=== PATIENT | male | born 1950 | race African-American/Black ===

== ENCOUNTER 2017-12-13 12:55 | Observation (INO) ==
[2017-12-13 13:44] LABS: Basophils # 0.1 K/mcL (0.0-0.2); Eosinophils # 0.3 K/mcL (0.0-0.6); Hematocrit 42.9 % (37.5-50.1); Hemoglobin 15.5 g/dL (12.9-16.9); Immature Granulocytes % 0.4 % (0-4); Lymphocytes # 3.4 K/mcL (0.6-4.6); Lymphocytes % 41.3 %; Mean Corpuscular HGB Conc 36.1 g/dL (31.6-35.5); Mean Corpuscular Hemoglobin 28.5 pg (28.0-33.3); Mean Corpuscular Volume 78.9 fL (83.0-100.0); Mean Platelet Volume 10.3 fL (9.4-12.4); Monocytes # 0.6 K/mcL (0.0-1.3); Monocytes % 6.9 %; Neutrophils # 3.9 K/mcL (1.6-8.9); Platelet Count 197 K/mcL (140-400); Red Blood Count 5.44 M/mcL (4.19-5.50); Red Cell Distribution Width 13.4 % (11.5-14.5); Segmented Neutrophils % 47.4 %
[2017-12-13 13:56] LABS: Activated Partial Thrombo Time 32.5 Seconds (26.0-36.0)
[2017-12-13 14:06] LABS: Prothrombin Time 11.1 Seconds (9.4-12.1)
[2017-12-13 14:07] LABS: Troponin I < 0.03 ng/mL (< 0.04)
[2017-12-13 14:14] LABS: BUN/Creatinine Ratio 9 (6-26); Blood Urea Nitrogen 8 mg/dL (8-23); Calcium 9.3 mg/dL (8.6-10.3); Carbon Dioxide 27 mEq/L (23-29); Chloride 107 mEq/L (98-107); Glucose 131 mg/dL (70-105); Osmolality,Calculated 288 (280-300); Potassium 3.9 mEq/L (3.5-5.1); Sodium 139 mEq/L (136-145); eGFR For Non-African Americans > 60 (> 60)
[2017-12-13] MEDS ORDERED: Isovue-370 500 ML INFUS..BTL IV ONE (15:13)
[2017-12-13] MEDS ORDERED: Aspirin 325 MG TABLET PO ONE (15:13)
--- NOTE | 2017-12-13 15:17 | Emergency Department Note ---
Disposition Clinical Impression: Neurological deficit present Disposition: Admitted As Inpatient Condition: Good Referrals: Alfa Win MD [Primary Care Provider] - Forms: ED Satisfaction Letter Neuro HPI - General Chief Complaint: ED Neuro Symptoms/Deficit Stated Complaint: Neuro symptoms right side 45 minutes ago Time Seen by Provider: 12/13/17 13:29 Source: patient Limitations: no limitations Nursing Notes Reviewed: Yes Vital Signs Reviewed: Yes - History of Present Illness HPI Narrative: Patient presents today for evaluation of neuro symptoms. Patient has had intermittent symptoms in the left arm and face to go back approximately a couple of months. Symptoms happened and he did not think anything about it. Symptoms happened last night when he was telling his friends who is at bedside. Patient's symptoms resolved after several minutes. He also had symptoms this morning that resolved after short period of time. Patient's onset of symptoms was at 11:00 prior to arrival. Patient continues to have objective findings of sensation deficits to the face arm and leg on the right side. A stroke alert was called despite minimal finding secondary to the acute onset and wanting to ensure ability to stay at this facility. I did discuss the risk and benefits with the patient and he requested further specialty consultation. - Related Data Home Medications: Home Medications Medication Instructions Recorded Confirmed Fluticasone Propionate Nasal 2 puff NS DAILY PRN 12/13/17 12/13/17 [Flonase] HYDROcodone/Acet 7.5/325 mg [[place] 1 tab PO Q4H PRN 12/13/17 12/13/17 7.5-325 mg] Allergies/Adverse Reactions: Allergies Allergy/AdvReac Type Severity Reaction Status Date / Time latex Allergy Rash Verified 12/13/17 13:41 Sulfa (Sulfonamide Allergy Hives Verified 12/13/17 13:37 Antibiotics) Review of Systems: CONSTITUTIONAL: No weight loss, fever, chills, weakness or fatigue. HEENT: Eyes: No visual changes. Ears, Nose, Throat: No hearing loss, difficulty talking or unable to swallow. SKIN: No rash or itching. CARDIOVASCULAR: No chest pain, chest pressure or chest discomfort. No palpitations or edema. RESPIRATORY: No shortness of breath, cough or sputum. GASTROINTESTINAL: No anorexia, nausea, vomiting or diarrhea. No abdominal pain or blood. GENITOURINARY: No burning on urination or hematuria. NEUROLOGICAL: Right face arm and leg sensation deficit. Reported right facial deficit that resolved upon arrival. No headache, dizziness, syncope, paralysis , ataxia, numbness or tingling in the extremities. No change in bowel or bladder control. MUSCULOSKELETAL: No muscle pain, back pain, joint pain or stiffness. Past Medical History - Past Medical History Medical history: Reports: arthritis, diabetes, hyperlipidemia, hypertension, kidney stones, renal disease Psychiatric history: Reports: anxiety, depression - Social History Smoking Status: Current every day smoker Smokeless Tobacco Status: No Alcohol use: Reports: none Drug use: Reports: none Physical Exam General: Well appearing, nontoxic, no acute distress Head: Normocephalic Atraumatic Eyes: PERRL, EOMI ENT: Airway patent, no stridor Neck: supple, no meningismus Chest: Lungs clear to auscultation bilateral Cardiac: Regular rate and rhythm, no murmurs, rubs or gallops Abdomen: soft, nontender, nondistended; no guarding, rebound, or tenderness to percussion Musculoskeletal: Calves symmetric, nontender Skin: No rash, normal skin tone Neuro: Alert and Oriented to person, place, and time; sensation deficits to the right face arm and leg. Full 5 out of 5 muscle strength to the upper lower extremities. Finger to nose and heel to padilla intact. Patellar reflexes are equal and symmetric. Patient had reported right facial droop. Patient does have a mendoza and is mildly hard to assess but no specific facial droop noted on dilation. - General Limitations: no limitations General appearance: alert Course - Reevaluation(s) Reevaluation #1: Patient reevaluated states he feels mildly improved however on exam he continues to have the sensation deficits to the right side. CTA of the head and neck has been ordered. Patient will undergo further evaluation for possible stroke and be admitted to the hospitalist service. - Consultations Consultation #1: Discussed with [facility] stroke neurologist. Due to the unclear onset as well as stroke scale of one; patient will not receive TPA. Consultation #2: Discussed with hospitalist. Patient accepted for admission. Requests aspirin to be given. Vital Signs Temperature 97.9 F 12/13/17 12:59 Pulse Rate 83 12/13/17 12:59 Respiratory Rate 16 12/13/17 12:59 Blood Pressure 206/108 12/13/17 12:59 O2 Sat by Pulse Oximetry 97 12/13/17 12:59 Temperature 97.9 F 12/13/17 14:04 Pulse Rate 72 12/13/17 14:29 Respiratory Rate 20 12/13/17 14:29 Blood Pressure 161/91 12/13/17 14:29 O2 Sat by Pulse Oximetry 99 12/13/17 14:04 Oxygen Delivery Oxygen Delivery Room Air Neuro Symptoms/Deficit - Lab Data Result diagrams: 12/13/17 13:36 12/13/17 13:36 Lab Results 12/13/17 12/13/17 12/13/17 Range/Units 13:36 13:36 13:36 WBC 8.3 (4.3-11.1) K/mcL RBC 5.44 (4.19-5.50) M/mcL Hgb 15.5 (12.9-16.9) g/dL Hct 42.9 (37.5-50.1) % MCV 78.9 L (83.0-100.0) fL MCH 28.5 (28.0-33.3) pg MCHC 36.1 H (31.6-35.5) g/dL RDW 13.4 (11.5-14.5) % Plt Count 197 (140-400) K/mcL MPV 10.3 (9.4-12.4) fL Immature Gran % 0.4 (0-4) % Seg Neutrophils % 47.4 % Lymphocytes % 41.3 % Monocytes % 6.9 % Eosinophils % 3.0 % Basophils % 1.0 % Neutrophils # 3.9 (1.6-8.9) K/mcL Lymphocytes # 3.4 (0.6-4.6) K/mcL Monocytes # 0.6 (0.0-1.3) K/mcL Eosinophils # 0.3 (0.0-0.6) K/mcL Basophils # 0.1 (0.0-0.2) K/mcL PT 11.1 (9.4-12.1) Seconds INR 1.0 APTT 32.5 (26.0-36.0) Seconds Sodium 139 (136-145) mEq/L Potassium 3.9 (3.5-5.1) mEq/L Chloride 107 (98-107) mEq/L Carbon Dioxide 27 (23-29) mEq/L BUN 8 (8-23) mg/dL Creatinine 0.89 (0.70-1.30) mg/dL Est GFR ( Amer) > 60 (> 60) Est GFR (Non-Af Amer) > 60 (> 60) BUN/Creatinine Ratio 9 (6-26) Glucose 131 H (70-105) mg/dL Calculated Osmolality 288 (280-300) Calcium 9.3 (8.6-10.3) mg/dL Troponin I < 0.03 (< 0.04) ng/mL NIH Stroke Scale - Level of Consciousness LOC: Alert - LOC Questions LOC Questions: Answers both correctly - LOC Commands LOC Commands: Performs both correctly - Best Gaze Best Gaze: Normal - Visual Visual: No visual loss - Facial Palsy Facial Palsy: Normal - Motor Arms Motor Arm-Left: No drift for 10 seconds - Motor Legs Motor Leg-Left: No drift for 5 seconds - Limb Ataxia Limb Ataxia: Absent of affected limb too weak to perform exam - Sensory Sensory: Mild to moderate loss, "not as sharp" - Best Language Best Language: No aphasia - Dysarthria Dysarthria: Normal - Extinction and Inattention Extinction and Inattention: Normal TPA Checklist - LKW: 3-4.5 hrs Add. Warnings/Precautions Patient/family understanding: The patient/family members have been counseled and understood the risk, benefit , and alternatives of treatment.
[2017-12-13] MEDS ORDERED: Fluticasone Propionate Nasal 50 MCG/SPRAY BOTTLE NS PRN (15:41)
[2017-12-13] MEDS ORDERED: Naloxone 0.4 MG/ML INJ IVP PRN (15:42)
--- NOTE | 2017-12-13 16:29 | Internal Med History&Physical ---
Date of Encounter: 12/13/17 Time of Encounter: 16:20 Internal Medicine - H&P: HPI Chief complaint: R arm and face numbness Admitted From: Home Plans for Post Hospital Care: Home History of present illness: Mr. Collier is a 67 year old male with medical history of hyperactive bladder and diabetes mellitus not on any medications, tobacco abuse presented with right facial, right upper extremity and right lower extremity numbness started at 11 AM this morning. He reports having finished his breakfast and while watching TV noticed his right face and right upper and lower extremity felt normal. He reports cutting his brother at that time and he noticed no speech deficits. He denies facial droop, he denies multiple weakness, he denies confusion, he denies any acute visual complaints at that time. He he denies active chest pain, palpitations, diaphoresis or shortness of breath at the time of evaluation. He however reports a history of chest pain on exertion chronically. And at bedtime of review, he reports all his symptoms have resolved. He reports smoking 1 pack per day for the past 48 years, he denies illicit drug use, he reports significant family history of TIAs and vascular disease in his mother. He also has a history of peripheral arterial disease. On arrival, NIHSS was 1 , documented for numbness, admitting head CT was unremarkable, and [facility] neurology was consulted. No TPA was administered due to waxing and waning symptoms as well as no significant neurologic deficits. he will be placed on observation for suspected TIA, for TIA work up He is clinically stable without neurologic deficits at my time of evaluation Past Med Surg Social Fam HX - Past Medical History Medical history: arthritis, diabetes, hyperlipidemia, hypertension, kidney stones, renal disease Psychiatric history: anxiety, depression - Past Surgical History Additional surgical history: shoulder each x 2. bilat carpal tunnel. hernia x 3. hand. right knee. left hip. left ankle - Social History Smoking Status: Current every day smoker Smokeless Tobacco Status: No Alcohol use: none Drug use: none Internal Medicine - H&P: Meds Fluticasone Propionate Nasal [Flonase] 2 puff NS DAILY PRN 12/13/17 [History] HYDROcodone/Acet 7.5/325 mg [[place] 7.5-325 mg] 1 tab PO Q4H PRN 12/13/17 [ History] 3 Allergy/AdvReac Type Severity Reaction Status Date / Time latex Allergy Rash Verified 12/13/17 13:41 Sulfa (Sulfonamide Allergy Hives Verified 12/13/17 13:37 Antibiotics) All Systems PM: A 10-system review of systems was performed and is negative for pertinent findings except as documented above in the HPI. - Constitutional Constitutional: as per HPI - EENT Eyes: as per HPI Ears: as per HPI Nose, mouth and throat: as per HPI - Cardiovascular Cardiovascular ROS IM: as per HPI - Respiratory Respiratory: as per HPI - Gastrointestinal Gastrointestinal: as per HPI - Musculoskeletal Musculoskeletal ROS IM: as per HPI - Integumentary Integumentary IM: as per HPI - Neurological Neurological ROS: as per HPI - Constitutional Vitals: Temp Pulse Resp BP Pulse Ox 97.9 F 72 20 161/91 99 12/13/17 14:04 12/13/17 14:29 12/13/17 14:29 12/13/17 14:29 12/13/17 14:04 General appearance: Present: A&O X 3, pleasant, no acute distress, obese Exam: See exam below - Head Head exam: Present: atraumatic - Eye Eye exam: Present: PERRL, conjuntiva pink, sclera anicteric Pupils: Present: PERRL - Neck Neck exam general surgery: Present: supple, trachea midline. Absent: lymphadenopathy - Respiratory Respiratory exam: Present: CTAB. Absent: accessory muscle use, rales, rhonchi, wheezes - Cardiovascular Cardiovascular exam: Present: RRR, +S1, +S2. Absent: diastolic murmur, gallop, rubs, systolic murmur - GI/Abdominal GI/Abdominal exam: Present: normal bowel sounds, soft, no peritoneal signs. Absent: distended, tenderness - Extremities Exam Extremities exam: Present: pedal edema (bilateral 1+ ankle edema), warm, radial pulses palpable and symmetrical. Absent: calf tenderness, cyanotic - Neurological Exam Neurological exam: Present: alert, CN II-XII intact, oriented X3, no focal deficits. Absent: pronater drift, facial droop, speech deficit - Skin Skin exam: Present: dry, intact Internal Med - H&P Results - Labs CBC & Chem 7: 12/13/17 13:36 12/13/17 13:36 - Assessment and plan (1) TIA (transient ischemic attack) Current Visit: Yes Status: Acute Assessment and plan: Suspected Patient presented with R face and RUE and RLE numbness Waxing and waning per patient Initial head CT unremarkable Significant risk factors including heavy smoking, DM, PAD, Family hx Obtain Brain MRI Obtain carotid USS and ECHO, Obtain EKG Keep on tele ASA given in ER, continue ASA 81 mg daily No neuro deficits at my time of evaluation Lipitor 40mg HS Check A1C and Lipid panel a.m Continue to monitor Patient educated on diagnoses (2) Numbness Current Visit: Yes Status: Acute Assessment and plan: as above (3) Diabetes mellitus Current Visit: Yes Status: Chronic Assessment and plan: Patient reports being diagnosed with DM 2 2 weeks ago, not on any medications Check A1C a.m FS ACHS Sliding scale Qualifiers: Diabetes mellitus type: type 2 Diabetes mellitus chcf insulin use: without terminal block assembler use Diabetes mellitus complication status: without complication Qualified Code(s): E11.9 - Type 2 diabetes mellitus without complications (4) Tobacco abuse Current Visit: Yes Status: Chronic Assessment and plan: encourage cessation (5) Obesity Current Visit: Yes Status: Chronic Assessment and plan: Lifestyle modification encouraged Qualifiers: Obesity type: unspecified obesity type Obesity classification: adult class 2 (BMI 35 - 39.9) Serious obesity comorbidity presence: without serious comorbidity Body mass index: BMI 35.0-35.9 Qualified Code(s): E66.9 - Obesity, unspecified; Z68.35 - Body mass index (BMI) 35.0-35.9, adult - Time Spent With Patient Total time spent is greater than 50% in coordination of care (as documented) at patient's floor/unit and/or counseling patient:
[2017-12-13] MEDS ORDERED: Dextrose Gel 15 GM/37.5 ML TUBE PO PRN ×2 (16:38)
[2017-12-13] MEDS ORDERED: *HR* Dextrose 50 % in Water (Syg) 50 ML SYRINGE IVP PRN (16:38)
[2017-12-13] MEDS ORDERED: D5% in Water 1,000 ML IVC PRN (16:38)
[2017-12-13] MEDS ORDERED: Insulin LISPRO 300 UNITS/3 ML VIAL SQ SCH (21:00)
[2017-12-14] MEDS: *HR* HYDROcodone/Acet 7.5/325 mg TABLET PO PRN ×3 (04:12→17:53)
[2017-12-14 04:37] LABS: Chol/HDL Ratio 6.2 (0-4.9)
[2017-12-14] MEDS: Insulin LISPRO 300 UNITS/3 ML VIAL SQ SCH ×3 (08:23→18:01)
[2017-12-14] MEDS ORDERED: Aspirin Enteric Coated 81 MG Tablet PO SCH (09:00)
--- NOTE | 2017-12-14 09:03 | Internal Med Progress Note ---
Hospitalist Progress Note - Encounter Date of Encounter: 12/14/17 Time of Encounter: 09:00 - Exam Vitals: Temp Pulse Resp BP Pulse Ox 98.2 F 67 20 173/85 97 12/14/17 07:44 12/14/17 07:44 12/14/17 07:44 12/14/17 07:44 12/14/17 07:44 Exam: Gen - Awake, alert, oriented x 3, no acute distress HEENT - NCAT, PERRLA, EOMI, hearing grossly intact, oropharynx benign CV - RRR, normal S1 and S2, no M/R/G, no BLE edema Resp - Normal WOB, CTAB, no W/R/R GI - Soft, NT/ND, no masses, normal bowel sounds, Skin - Warm, dry, no rashes/lesions/ulcers Psych - Normal mood and affect, no depression or anxiety - Assessment and Plan (1) TIA (transient ischemic attack) Current Visit: Yes Status: Acute Assessment and Plan: Patient presented with R face and RUE and RLE numbness. Waxing and waning per patient Initial head CT unremarkable Significant risk factors including heavy smoking, DM, PAD, Family hx MRI Brain came back negative. Carotid USS and ECHO completed pending reports Continue aspirin and lipitor. Neuro recs appreciated (2) Numbness Current Visit: Yes Status: Acute Assessment and Plan: as above (3) Diabetes mellitus Current Visit: Yes Status: Chronic Assessment and Plan: Hemglobin A1c was 6.3. Diet and exercise. Insulin sliding scale (4) Tobacco abuse Current Visit: Yes Status: Chronic Assessment and Plan: encourage cessation (5) Obesity Current Visit: Yes Status: Chronic Assessment and Plan: Lifestyle modification encouraged (6) Hypertension Current Visit: Yes Status: Acute Assessment and Plan: Monitor BP , start on amlodipine DVT Prophylaxis: Heparin sc - Time Spent with Patient Total time spent is greater than 50% in coordination of care (as documented) at patient's floor/unit and/or counseling patient: Internal Medicine: Result - Labs CBC & Chem 7: 12/13/17 13:36 12/13/17 13:36 - ABG Interpretation ABG results: PT/INR, D-dimer PT 11.1 Seconds (9.4-12.1) 12/13/17 13:36 Consult Discharge Plan - Plan Referrals: Alfa Win MD [Primary Care Provider] - (3) Diabetes mellitus Qualifiers: Diabetes mellitus type: type 2 Diabetes mellitus watermelon inspector insulin use: without mcc use Diabetes mellitus complication status: without complication Qualified Code(s): E11.9 - Type 2 diabetes mellitus without complications (5) Obesity Qualifiers: Obesity type: unspecified obesity type Obesity classification: adult class 2 (BMI 35 - 39.9) Serious obesity comorbidity presence: without serious comorbidity Body mass index: BMI 35.0-35.9 Qualified Code(s): E66.9 - Obesity , unspecified; Z68.35 - Body mass index (BMI) 35.0-35.9, adult
[2017-12-14] MEDS ORDERED: amLODIPine 5 MG TABLET PO SCH (09:15)
[2017-12-14 09:43] LABS: Estimated Average Glucose 134 mg/dl; Hemoglobin A1C 6.3 %
--- NOTE | 2017-12-14 17:16 | Neurology - Consult Note ---
Date of Encounter: 12/14/17 Time of Encounter: 17:12 Assessment and Plan (1) TIA (transient ischemic attack) Current Visit: Yes Status: Acute Patient with PMH significant for HTN, hyperlipidemia, DM, obesity who developed two episodes of right sided paresthesia with the first episode less prominent. The symptoms involve right sided paresthesia including face arm and leg therefore likely a true TIA. This was associated with elevated BP so therefore it may be related to hypertensive crisis. Stroke work up is completed, barring formal result of carotid artery duplex study. Agree with continuing aspirin 81mg daily and continue statin therapy. Patient is advised to follow up with PCP and he needs also sleep study to assess possible untreated WILLY. Risk factor modification for CVA recommended. Patient is currently back to baseline and he is ready to be discharged to home. Total time spent on this case is approximately 55 minutes History of Present Illness Chief complaint: right sided paresthesia HPI: Mr. Collier is a 67 year old male with PMH significant for HTN, obesity, hyperlipidemia, DM who developed acute onset of right sided facial, arm and leg numbness lasting less than 30 minutes. Patient states that he had one similar episode with less intensity about few weeks ago. He developed numbness to his right face, corner of the mouth, and right arm. However, this time the numbness involved also his left leg and it lasted longer and it scared him. During the episode he was still able to talk normal per his brother. he states that he was also a little disoriented at the time. CT of head in the ER showed no acute intracranial abnormality. MRI of brain also completed and showed no intracranial abnormality No evidence of acute infarct. He has been taking aspirin 81mg daily off and on in the past. Past Med Surg Social Fam HX - Past Medical History Medical history: arthritis, diabetes, hyperlipidemia, hypertension, kidney stones, renal disease Psychiatric history: anxiety, depression - Past Surgical History Surgical History: cholecystectomy Additional surgical history: shoulder each x 2. bilat carpal tunnel. hernia x 3. hand. right knee. left hip. left ankle - Social History Smoking Status: Current every day smoker Smokeless Tobacco Status: No Alcohol use: none Drug use: none Medications and Allergies Fluticasone Propionate Nasal [Flonase] 2 puff NS DAILY PRN 12/13/17 [History] HYDROcodone/Acet 7.5/325 mg [[place] 7.5-325 mg] 1 tab PO Q4H PRN 12/13/17 [ History] 3 Allergy/AdvReac Type Severity Reaction Status Date / Time latex Allergy Rash Verified 12/13/17 13:41 Sulfa (Sulfonamide Allergy Hives Verified 12/13/17 13:37 Antibiotics) All Systems: The remainder of the systems were reviewed and are negative Physical Examination - Vital Signs Vital Signs: Initial Vital Signs Temp Pulse Resp BP Pulse Ox 97.9 F 83 16 206/108 97 12/13/17 12:59 12/13/17 12:59 12/13/17 12:59 12/13/17 12:59 12/13/17 12:59 - Constitutional General appearance: comfortable - Neurologic Detailed motor examination: full strength in all major muscle groups Motor examination - right side: 5/5: deltoids, biceps, triceps, wrist flexion, wrist extension, cytotechnologist/cytology supervisor, hip flexors, tibialis Anterior, quadriceps, toe extension (EHL), plantarflexion Motor examination - left side: 5/5: deltoids, biceps, triceps, wrist flexion, wrist extension, hip flexors, cytotechnologist/cytology supervisor, quadriceps, tibialis Anterior, toe extension (EHL), plantarflexion Detailed sensory examination: intact Posture: other (None) Reflex and gait examination: intact Reflexes: Biceps: 1+, Triceps: 1+, Brachioradialis: 1+, Patella: 1+, Achilles: 1 + Mental Status Examination: awake, alert, oriented to person, oriented to place, oriented to time, follows commands appropriately, answers questions appropriately, no agnosia, no aphasia, no aproxia Cranial nerve examination: PERRL, EOMI, visual delatorre intact, corneal reflexes brisk symmetrically, sensory to face intact, mastication intact, no facial asymmetry is present, no dysarthria, hearing is intact symmetrically, soft palate elevates bilaterally upon phonation, gag reflex intact, flexes SCM and trapezius muscles symmetrically with full power, tongue protrudes midline, no atrophy or facial fasiculations present Cerebellar examination: no dysmetria, performs finger to nose and heel to padilla symmetrically without ataxia, no gait ataxia, no truncal ataxia, no difficulty with rapid alternating movements Results - Laboratory Findings CBC and BMP: 12/13/17 13:36 12/13/17 13:36 Abnormal lab findings: Abnormal lab results MCV 78.9 fL (83.0-100.0) L 12/13/17 13:36 MCHC 36.1 g/dL (31.6-35.5) H 12/13/17 13:36 Glucose 131 mg/dL (70-105) H 12/13/17 13:36 POC Glucose 137 mg/dL (70-99) H 12/13/17 20:02 Hemoglobin A1c 6.3 % (-5.6) H 12/14/17 03:13 Triglycerides 214 mg/dL (< 150) H 12/14/17 03:13 Cholesterol 211 mg/dL (< 200) H 12/14/17 03:13 LDL Cholesterol, Calc 134 mg/dL (0-99) H 12/14/17 03:13 VLDL Cholesterol, Calc 43 mg/dL (< 31) H 12/14/17 03:13 HDL Cholesterol 34 mg/dL (40-59) L 12/14/17 03:13 Cholesterol/HDL Ratio 6.2 (0-4.9) H 12/14/17 03:13 - Diagnostic Findings Additional findings: CT of the head was performed without the administration of intravenous contrast. Dose modulation, iterative reconstruction, and/or weight based adjustment of the mA/kV was utilized to reduce the radiation dose to as low as reasonably achievable. COMPARISON: None. HISTORY: ORDERING SYSTEM PROVIDED HISTORY: stroke alert FINDINGS: BRAIN/VENTRICLES: There is no acute intracranial hemorrhage, mass effect or midline shift. No abnormal extra-axial fluid collection. The sullivan-white differentiation is maintained without evidence of an acute infarct. There is no evidence of hydrocephalus. There is mild periventricular and subcortical white matter hypoattenuation most consistent with microvascular ischemic changes. There is mild age appropriate global cerebral atrophy. Atherosclerotic changes involving the bilateral carotid siphons. ORBITS: The visualized portion of the orbits demonstrate no acute abnormality. SINUSES: The visualized paranasal sinuses and mastoid air cells demonstrate no acute abnormality. SOFT TISSUES/SKULL: No acute abnormality of the visualized skull or soft tissues. IMPRESSION: No acute intracranial abnormality. D/ / Tomi Osborne MD / Tomi Osborne MD Interpreting Provider: Tomi Osborne MD NDUM: Results were called by Dr. Tomi Osborne MD to David Dozier on 12/13/2017 at 13:55. D/ / Tomi Osborne MD / Tomi Osborne MD Interpreting Provider: Tomi Osborne MD R #: [id number] CT/CT stroke alert head wo con IMPRESSION: No acute intracranial abnormality. D/ / Tomi Osborne MD / Tomi Osborne MD Interpreting Provider: Tomi Osborne MD OF THE BRAIN WITHOUT CONTRAST 12/13/2017 5:27 pm TECHNIQUE: Multiplanar multisequence MRI of the brain was performed without the administration of intravenous contrast. COMPARISON: CT head December 13, 2017 HISTORY: ORDERING SYSTEM PROVIDED HISTORY: R/O CVA FINDINGS: INTRACRANIAL STRUCTURES/VENTRICLES: There is periventricular white matter T2/FLAIR hyperintensity, likely related to mild chronic microvascular disease. There is no acute infarct. No mass effect or midline shift. No evidence of an acute intracranial hemorrhage. The ventricles and sulci are normal in size and configuration. The sellar/suprasellar regions appear unremarkable. The normal signal voids within the major intracranial vessels appear maintained. There are a few scattered tiny foci susceptibility artifacts, most pronounced in the left frontal centrum semi ovale, likely related to small old petechial hemorrhage versus multiple small cavernomas. ORBITS: The visualized portion of the orbits demonstrate no acute abnormality. SINUSES: There is scattered minimal mucosal thickening in the paranasal sinuses. There is trace left mastoid effusion. BONES/SOFT TISSUES: The bone marrow signal intensity appears normal. The soft tissues demonstrate no acute abnormality. MR/MR head/brain wo con IMPRESSION: No acute intracranial abnormality. Mild chronic microvascular disease. A few scattered tiny foci susceptibility artifacts, likely related to small old petechial hemorrhage versus multiple small cavernomas. D/ / Zeke Beck MD / Zeke Beck MD Interpreting Provider: Zeke Beck MD /EV echo with saline Impressions: LVEF 65%. Normal LV chamber size and systolic function. Mild concentric left ventricular hypertrophy. Mild left ventricular diastolic dysfunction. Normal right ventricular structure and function. Moderately dilated left atrium. No significant valvular dysfunction. No pulmonary hypertension. Estimated RA pressure is 10 mmHg. No evidence of PFO with agitated saline contrast. Left Ventricular Wall Motion: Consult Discharge Plan - Plan Referrals: Alfa Win MD [Primary Care Provider] -
[2017-12-14] MEDS ORDERED: *HR* Heparin 5,000 UNIT/ML VIAL SQ SCH (18:00)
[2017-12-14 18:19] VITALS: BP 171/84
--- NOTE | 2017-12-14 18:30 | Discharge Summary ---
- NOTES TO OUTPATIENT PROVIDER Notes to Outpatient Provider: Presented with TIA, symptoms resolved and self- limited. Unclear whether true TIA given the fact the patient also presented with hypertensive urgency which could also be continuing to symptoms including right face and right upper extremity paresthesias. Neuro imaging negative for acute intracranial abnormality, carotid duplex imaging with findings of 60-79% stenosis in the left carotid artery. Request for outpatient evaluation with vascular physician has been sent. Please call [facility] to confirm appointment. Orders not resulted at time of discharge: Pending orders 12/15/17 04:00 Basic Metabolic Panel AM 0400 CBC [Complete Blood Count] [HEME] AM 0400 Magnesium AM 0400 Phosphorous AM 0400 12/16/17 04:00 Basic Metabolic Panel AM 0400 CBC [Complete Blood Count] [HEME] AM 0400 Magnesium AM 0400 Phosphorous AM 0400 12/17/17 04:00 Basic Metabolic Panel AM 0400 CBC [Complete Blood Count] [HEME] AM 0400 Magnesium AM 0400 Phosphorous AM 0400 12/18/17 04:00 Basic Metabolic Panel AM 0400 CBC [Complete Blood Count] [HEME] AM 0400 Magnesium AM 0400 Phosphorous AM 0400 12/19/17 04:00 Basic Metabolic Panel AM 0400 CBC [Complete Blood Count] [HEME] AM 0400 Magnesium AM 0400 Phosphorous AM 0400 12/20/17 04:00 Basic Metabolic Panel AM 0400 CBC [Complete Blood Count] [HEME] AM 0400 Magnesium AM 0400 Phosphorous AM 0400 Date of Encounter: 12/14/17 Time of Encounter: 18:28 - Discharge Diagnosis (1) TIA (transient ischemic attack) Priority: Primary Status: Acute Assessment and Plan: Patient presented with R face and RUE and RLE numbness. Waxing and waning per patient Initial head CT unremarkable MRI brain negative for acute intracranial abnormality; mild chronic microvascular disease, a few scattered tiny foci likely related to small old petechial hemorrhage versus multiple small cavernoma's Carotid Dopplers preliminary results reveal right-sided mid and distal ICA with 40-59% stenosis and left-sided distal ICA with 60-79% stenosis TTE-normal LV size and function, mild LV hypertrophy, mild LV diastolic dysfunction, normal RV structure and function, moderately dilated left atrium, no significant valvular dysfunction, no pulmonary HTN Significant risk factors including heavy smoking, DM, PAD, Family hx Continue aspirin and lipitor per neurology. Neuro recs appreciated Follow-up with PCP within 1 week of discharge With findings of carotid stenosis patient would benefit from a vascular physician follow-up; follow up request has been sent; note to PCP: Please confirm follow-up with vascular physician Discussed dietary modifications, weight loss and left-sided changes (2) Numbness Priority: Secondary Status: Acute (3) Diabetes mellitus Priority: Secondary Status: Chronic Qualifiers: Diabetes mellitus type: type 2 Diabetes mellitus intermodal customer service insulin use: without senior living use Diabetes mellitus complication status: without complication Qualified Code(s): E11.9 - Type 2 diabetes mellitus without complications (4) Tobacco abuse Priority: Secondary Status: Chronic Assessment and Plan: Discussed tobacco cessation (5) Obesity Priority: Secondary Status: Chronic Assessment and Plan: Discussed dietary and lifestyle changes Qualifiers: Obesity type: unspecified obesity type Obesity classification: adult class 2 (BMI 35 - 39.9) Serious obesity comorbidity presence: without serious comorbidity Body mass index: BMI 35.0-35.9 Qualified Code(s): E66.9 - Obesity, unspecified; Z68.35 - Body mass index (BMI) 35.0-35.9, adult (6) Hypertension Priority: Secondary Status: Acute Assessment and Plan: Norvasc started today, continues to have intermittent hypertension but improved throughout afternoon. Continues to have some hypertension throughout this evening however, patient is adamant regarding discharge. Discussed with patient that he would need close follow-up with blood pressure since he was just started on antihypertensive Norvasc. Patient verbalizes understanding but continues to request discharge home. Qualifiers: Hypertension type: unspecified Qualified Code(s): I10 - Essential (primary ) hypertension Hospital course: Mr. Collier is a 67 year old male Patient presented with R face and RUE and RLE numbness. Waxing and waning per patient Initial head CT unremarkable MRI brain negative for acute intracranial abnormality; mild chronic microvascular disease, a few scattered tiny foci likely related to small old petechial hemorrhage versus multiple small cavernoma's Carotid Dopplers preliminary results reveal right-sided mid and distal ICA with 40-59% stenosis and left-sided distal ICA with 60-79% stenosis TTE-normal LV size and function, mild LV hypertrophy, mild LV diastolic dysfunction, normal RV structure and function, moderately dilated left atrium, no significant valvular dysfunction, no pulmonary HTN Significant risk factors including heavy smoking, DM, PAD, Family hx Continue aspirin and lipitor per neurology. Neuro recs appreciated Follow-up with PCP within 1 week of discharge With findings of carotid stenosis patient would benefit from a vascular physician follow-up; follow up request has been sent; note to PCP: Please confirm follow-up with vascular physician Discussed dietary modifications, weight loss and left-sided changes Discharge discussed with: patient, family, nurse, field technical support consultant Time spent discussing smoking cessation with patient: 3 to 10 minutes - Time Spent with Patient Total time spent providing and/or coordinating discharge services: Less than 30 minutes - Discharge Medications Prescriptions: amLODIPine [Norvasc] 5 mg PO DAILY 30 Days #30 tablet Aspirin Enteric Coated [Aspirin EC] 81 mg PO DAILY 30 Days #30 tablet. Atorvastatin [Lipitor] 40 mg PO HS 30 Days #30 tablet Home Medications: Fluticasone Propionate Nasal [Flonase] 2 puff NS DAILY PRN 12/13/17 [History] HYDROcodone/Acet 7.5/325 mg [[place] 7.5-325 mg] 1 tab PO Q4H PRN 12/13/17 [ History] Aspirin Enteric Coated [Aspirin EC] 81 mg PO DAILY 30 Days #30 tablet. [Rx] Atorvastatin [Lipitor] 40 mg PO HS 30 Days #30 tablet 12/14/17 [Rx] amLODIPine [Norvasc] 5 mg PO DAILY 30 Days #30 tablet 12/14/17 [Rx] Allergies/Adverse Reactions: 3 Allergy/AdvReac Type Severity Reaction Status Date / Time latex Allergy Rash Verified 12/13/17 13:41 Sulfa (Sulfonamide Allergy Hives Verified 12/13/17 13:37 Antibiotics) Date of admission: 12/13/17 15:56 Primary care physician: Alfa Win MD Consults: 12/14/17 08:45 Consult to Physical Therapy [CONS] Routine Comment: Evaluate, develop and implement POC Reason for Consult: acute cva Does patient have active BEDREST order?: No Is patient medically & hemodynamically stable?: Yes Patient assessed for mobility or mobilized this visit?: No 12/14/17 08:55 Consult to Neurology [CONS] Routine Consulting Provider: Neurology [facility] Reason for Consult: acute CVa Call Completed: Yes Discharging clinician: Arnie J Mensah Anticipated date of discharge: 12/14/17 - Constitutional Vitals: Temp Pulse Resp BP Pulse Ox 97.6 F 56 16 171/84 94 12/14/17 18:19 12/14/17 18:19 12/14/17 18:19 12/14/17 18:19 12/14/17 18:19 General appearance: Present: A&O X 3, pleasant, no acute distress, obese Exam: . - Head Head exam: Present: atraumatic, normocephalic - Eye Eye exam: Present: PERRL, conjuntiva pink, sclera anicteric Pupils: Present: PERRL - Neck Neck exam general surgery: Present: supple, trachea midline. Absent: lymphadenopathy - Respiratory Respiratory exam: Present: CTAB. Absent: accessory muscle use, rales, rhonchi, wheezes - Cardiovascular Cardiovascular exam: Present: RRR, +S1, +S2. Absent: diastolic murmur, gallop, rubs, systolic murmur - GI/Abdominal GI/Abdominal exam: Present: normal bowel sounds, soft, no peritoneal signs. Absent: distended, tenderness - Extremities Exam Extremities exam: Present: warm, radial pulses palpable and symmetrical. Absent : calf tenderness, cyanotic, pedal edema - Neurological Exam Neurological exam: Present: CN II-XII intact, oriented X3, no focal deficits. Absent: pronater drift, facial droop, speech deficit - Skin Skin exam: Present: dry, intact - Patient Status Disposition: Home, Self-Care Condition: Good Functional capacity at discharge: independent ambulation Overall status at discharge: patient is progressing back to baseline - Discharge Instructions Instructions: Chronic Hypertension (DC) Follow Up With: Alfa Win MD [Primary Care Provider] - - Diet and Activity Activity: increase activity as tolerated, resume usual activities as tolerated Diet: diabetic diet, low fat, low cholesterol, low salt diet
--- NOTE | 2017-12-17 12:30 | Electrocardiograph Report ---
[place] [id number] Test Date: 2017-12-13 Pat Name: Ryan Collier Department: [id number] Room: 3B14 Gender: M Financial Services Technician: : [id number] Requested By: Grzegorz Devlin Order Number: [id number] Reading MD: Milton Chavez Measurements Intervals [place] Rate: 75 P: 0 WA: 123 QRS: -11 QRSD: 86 T: -2 QT: 383 QTc: 428 Interpretive Statements Sinus rhythm Minimal ST elevation, anterior leads Electronically Signed On 12-17-2017 12:29:06 EDT by Milton Chavez
== END 2017-12-14 19:07 | disposition home or self-care (01) ==
LOC: 3BNU 12:55 → EMEROOARM 12:55 → 3BNU 18:01
PROVIDERS: ADMIT Internal Medicine; ATTEND Internal Medicine

== ENCOUNTER 2018-01-01 21:46 | Observation (INO) ==
--- NOTE | 2018-01-01 21:57 | Emergency Department Note ---
Disposition Clinical Impression: Sensory deficit, right Disposition: Admitted As Inpatient Neuro HPI - General Chief Complaint: ED Neuro Symptoms/Deficit Stated Complaint: Neuro Symptoms Time Seen by Provider: 01/01/18 21:54 Source: patient Mode of arrival: ambulatory Limitations: no limitations Nursing Notes Reviewed: Yes Vital Signs Reviewed: Yes - Related Data Home Medications: Home Medications Medication Instructions Recorded Confirmed Fluticasone Propionate Nasal 2 puff NS DAILY PRN 12/13/17 12/13/17 [Flonase] HYDROcodone/Acet 7.5/325 mg [[place] 1 tab PO Q4H PRN 12/13/17 12/13/17 7.5-325 mg] Previous Rx's Medication Instructions Recorded Aspirin Enteric Coated [Aspirin EC] 81 mg PO DAILY 30 Days #30 12/14/17 tablet. Atorvastatin [Lipitor] 40 mg PO HS 30 Days #30 tablet 12/14/17 amLODIPine [Norvasc] 5 mg PO DAILY 30 Days #30 tablet 12/14/17 Allergies/Adverse Reactions: Allergies Allergy/AdvReac Type Severity Reaction Status Date / Time latex Allergy Rash Verified 01/01/18 21:54 Sulfa (Sulfonamide Allergy Hives Verified 01/01/18 21:54 Antibiotics) Past Medical History - Past Medical History Medical history: Reports: arthritis, diabetes, hyperlipidemia, hypertension, kidney stones, renal disease Surgical history: Reports: cholecystectomy Psychiatric history: Reports: anxiety, depression - Social History Smoking Status: Current every day smoker Smokeless Tobacco Status: No Alcohol use: Reports: none Drug use: Reports: none Course Vital Signs Temperature 98.1 F 01/01/18 21:49 Pulse Rate 82 01/01/18 21:49 Respiratory Rate 16 01/01/18 21:49 Blood Pressure 195/93 01/01/18 21:49 O2 Sat by Pulse Oximetry 96 01/01/18 21:49 Temperature 98.1 F 01/01/18 21:57 Pulse Rate 72 01/01/18 23:07 Respiratory Rate 18 01/01/18 23:07 Blood Pressure 143/83 01/01/18 23:07 O2 Sat by Pulse Oximetry 99 01/01/18 23:07 Oxygen Delivery Oxygen Delivery Room Air Neuro Symptoms/Deficit - Lab Data Result diagrams: 01/01/18 22:20 01/01/18 22:20 Lab Results 01/01/18 01/01/18 01/01/18 Range/Units 22:20 22:20 22:20 WBC 8.2 (4.3-11.1) K/mcL RBC 5.21 (4.19-5.50) M/mcL Hgb 14.6 (12.9-16.9) g/dL Hct 40.7 (37.5-50.1) % MCV 78.1 L (83.0-100.0) fL MCH 28.0 (28.0-33.3) pg MCHC 35.9 H (31.6-35.5) g/dL RDW 13.2 (11.5-14.5) % Plt Count 189 (140-400) K/mcL MPV 10.3 (9.4-12.4) fL Immature Gran % 0.2 (0-4) % Seg Neutrophils % 51.6 % Lymphocytes % 37.3 % Monocytes % 7.2 % Eosinophils % 2.8 % Basophils % 0.9 % Neutrophils # 4.2 (1.6-8.9) K/mcL Lymphocytes # 3.1 (0.6-4.6) K/mcL Monocytes # 0.6 (0.0-1.3) K/mcL Eosinophils # 0.2 (0.0-0.6) K/mcL Basophils # 0.1 (0.0-0.2) K/mcL PT 11.0 (9.4-12.1) Seconds INR 1.0 Sodium 139 (136-145) mEq/L Potassium 3.8 (3.5-5.1) mEq/L Chloride 105 (98-107) mEq/L Carbon Dioxide 28 (23-29) mEq/L BUN 6 L (8-23) mg/dL Creatinine 0.85 (0.70-1.30) mg/dL Est GFR ( Amer) > 60 (> 60) Est GFR (Non-Af Amer) > 60 (> 60) BUN/Creatinine Ratio 7 (6-26) Glucose 161 H (70-105) mg/dL Calculated Osmolality 289 (280-300) Calcium 9.3 (8.6-10.3) mg/dL Troponin I < 0.03 (< 0.04) ng/mL TPA Checklist - LKW: 3-4.5 hrs Add. Warnings/Precautions Patient/family understanding: The patient/family members have been counseled and understood the risk, benefit , and alternatives of treatment. Attestation Statement - Attestation Attestation: Resident Attestation: I examined this patient and my medical decision making was reviewed with the Resident Physician. I agree with the documented findings, disposition and treatment plan as described except to the extent set forth below. We independently had [id number] contact with the patient. Patient here for right-sided deficits the face, arm, leg, similar symptoms to previous TIA workup. Patient's symptoms have started yesterday waxing and waning until today and have been present for greater than 12 hours. Patient will undergo further evaluation for possible stroke. No acute distress, sensation deficit to face arm and leg. No other neurologic abnormalities. Patient will be admitted for MRI to confirm or rule out stroke. Please see resident note for further details disposition.
[2018-01-01] MEDS ORDERED: Isovue-370 500 ML INFUS..BTL IV ONE (22:07)
--- NOTE | 2018-01-01 22:14 | Emergency Department Note ---
Disposition Clinical Impression: Sensory deficit, right Disposition: Admitted As Inpatient Time of Disposition: 00:52 Neuro HPI - General Chief Complaint: ED Neuro Symptoms/Deficit Stated Complaint: Neuro Symptoms Time Seen by Provider: 01/01/18 21:54 Source: patient Mode of arrival: ambulatory Limitations: no limitations Nursing Notes Reviewed: Yes Vital Signs Reviewed: Yes - History of Present Illness HPI Narrative: 67yo male presents from home via EMS for evaluation of right sided numbness. Onset this morning between 6-7am and persistent since. Described as numbness on the right face (except forehead) extending down the right torso and right upper and lower extremities. No weakness or slurring of speech. Patient had similar symptoms last night with the addition of right corner of mouth drooping. This spontaneously resolved after approximately 20 minutes. Patient also had similar symptoms 5 days ago, also lasting approximately 20 minutes. Patient has an appointment with Dr. Hogue on the re: carotid artery stenosis. PMH: HTN, HLD, hx TIA on aspirin. Meds: Norvasc, Atorvastatin, aspirin. ROS: Pos: as above Neg: fever, chills, nausea, vomiting, chest pain, weakness, back pain, falls, confusion - Related Data Home Medications: Home Medications Medication Instructions Recorded Confirmed Fluticasone Propionate Nasal 2 puff NS DAILY PRN 12/13/17 12/13/17 [Flonase] HYDROcodone/Acet 7.5/325 mg [Tram 1 tab PO Q4H PRN 12/13/17 12/13/17 7.5-325 mg] Previous Rx's Medication Instructions Recorded Aspirin Enteric Coated [Aspirin EC] 81 mg PO DAILY 30 Days #30 12/14/17 tablet. Atorvastatin [Lipitor] 40 mg PO HS 30 Days #30 tablet 12/14/17 amLODIPine [Norvasc] 5 mg PO DAILY 30 Days #30 tablet 12/14/17 Allergies/Adverse Reactions: Allergies Allergy/AdvReac Type Severity Reaction Status Date / Time latex Allergy Rash Verified 01/01/18 21:54 Sulfa (Sulfonamide Allergy Hives Verified 01/01/18 21:54 Antibiotics) All systems ED: reviewed and negative except as stated. Review of Systems: As Per HPI Past Medical History - Past Medical History Medical history: Reports: arthritis, diabetes, hyperlipidemia, hypertension, kidney stones, renal disease Surgical history: Reports: cholecystectomy Psychiatric history: Reports: anxiety, depression - Social History Smoking Status: Current every day smoker Smokeless Tobacco Status: No Alcohol use: Reports: none Drug use: Reports: none Physical Exam Vital Signs Reviewed General: Patient is alert, oriented, and in no acute distress. Head: atraumatic, normocephalic Eye: normal appearance, PERRL, EOMI, no scleral icterus, no conjunctival injection ENT: mucous membranes moist, normal external ear exam Neck: normal inspection, trachea midline, full ROM Chest: normal inspection, symmetric chest rise Respiratory: Good respiratory effort. Bilateral breath sounds are clear without wheezing, crackles, or rhonchi. Cardiovascular: Regular rate and rhythm. No clicks, rubs, gallops, or murmors. Normal heart sounds. Abdomen: Bowel sounds present normoactive x-4 quadrants. Abdomen is soft, nondistended, and nontender. No guarding or rebound. No organomegaly noted. Musculoskeletal: Spontaneously moving all extremities. Skin: warm, dry, intact. Neuro: Alert and oriented x4. Sensation light touch intact and equal in bilateral upper and lower extremities. Strength 5/5 and equal in bilateral upper and lower extremities. No limb drift. No facial asymmetry. Eyebrow raise and eye closure appropriate and equal bilaterally. Sensation intact in bilateral upper forehead. Mild decrease in sensation in right lower face ( below the forehead), right upper and lower extremities, and right torso. Psych: Patient's affect is appropriate for situation. - General Limitations: no limitations General appearance: alert, in no apparent distress Course Course Narrative: Carotid duplex 12/14/17: Impressions: The right internal carotid artery has a 40-59% stenosis. The left internal carotid artery has a 60-79% stenosis. MRI brain 12/13/17: MR/MR head/brain wo con IMPRESSION: No acute intracranial abnormality. Mild chronic microvascular disease. A few scattered tiny foci susceptibility artifacts, likely related to small old petechial hemorrhage versus multiple small cavernomas. Echocardiogram 12/14/17 EV/EV echo with saline Impressions: LVEF 65%. Normal LV chamber size and systolic function. Mild concentric left ventricular hypertrophy. Mild left ventricular diastolic dysfunction. Normal right ventricular structure and function. Moderately dilated left atrium. No significant valvular dysfunction. No pulmonary hypertension. Estimated RA pressure is 10 mmHg. No evidence of PFO with agitated saline contrast. Clinical concern today as patient's symptoms are similar to prior TIA however, there are persistent. Also concern as he has had several similar symptoms that self resolved in the last several days. CT head is unremarkable. The remainder patient's lab work is unremarkable. Discussed the above with the admitting hospitalist, Dr. Patel. He agrees to accept patient for MRI to ensure the patient does not have area of ischemia compared to his most recent MRI. Vital Signs Temperature 98.1 F 01/01/18 21:49 Pulse Rate 82 01/01/18 21:49 Respiratory Rate 16 01/01/18 21:49 Blood Pressure 195/93 01/01/18 21:49 O2 Sat by Pulse Oximetry 96 01/01/18 21:49 Temperature 98.1 F 01/01/18 21:57 Pulse Rate 72 01/01/18 23:07 Respiratory Rate 18 01/01/18 23:07 Blood Pressure 143/83 01/01/18 23:07 O2 Sat by Pulse Oximetry 99 01/01/18 23:07 Oxygen Delivery Oxygen Delivery Room Air Neuro Symptoms/Deficit - Lab Data Result diagrams: 01/01/18 22:20 01/01/18 22:20 Lab Results 01/01/18 01/01/18 01/01/18 Range/Units 22:20 22:20 22:20 WBC 8.2 (4.3-11.1) K/mcL RBC 5.21 (4.19-5.50) M/mcL Hgb 14.6 (12.9-16.9) g/dL Hct 40.7 (37.5-50.1) % MCV 78.1 L (83.0-100.0) fL MCH 28.0 (28.0-33.3) pg MCHC 35.9 H (31.6-35.5) g/dL RDW 13.2 (11.5-14.5) % Plt Count 189 (140-400) K/mcL MPV 10.3 (9.4-12.4) fL Immature Gran % 0.2 (0-4) % Seg Neutrophils % 51.6 % Lymphocytes % 37.3 % Monocytes % 7.2 % Eosinophils % 2.8 % Basophils % 0.9 % Neutrophils # 4.2 (1.6-8.9) K/mcL Lymphocytes # 3.1 (0.6-4.6) K/mcL Monocytes # 0.6 (0.0-1.3) K/mcL Eosinophils # 0.2 (0.0-0.6) K/mcL Basophils # 0.1 (0.0-0.2) K/mcL PT 11.0 (9.4-12.1) Seconds INR 1.0 Sodium 139 (136-145) mEq/L Potassium 3.8 (3.5-5.1) mEq/L Chloride 105 (98-107) mEq/L Carbon Dioxide 28 (23-29) mEq/L BUN 6 L (8-23) mg/dL Creatinine 0.85 (0.70-1.30) mg/dL Est GFR ( Amer) > 60 (> 60) Est GFR (Non-Af Amer) > 60 (> 60) BUN/Creatinine Ratio 7 (6-26) Glucose 161 H (70-105) mg/dL Calculated Osmolality 289 (280-300) Calcium 9.3 (8.6-10.3) mg/dL Troponin I < 0.03 (< 0.04) ng/mL NIH Stroke Scale - Level of Consciousness LOC: Alert - LOC Questions LOC Questions: Answers both correctly - LOC Commands LOC Commands: Performs both correctly - Best Gaze Best Gaze: Normal - Visual Visual: No visual loss - Facial Palsy Facial Palsy: Normal - Motor Arms Motor Arm-Left: No drift for 10 seconds Motor Arm-Right: No drift for 10 seconds - Motor Legs Motor Leg-Left: No drift for 5 seconds Motor Leg-Right: No drift for 5 seconds - Limb Ataxia Limb Ataxia: Normal, No Ataxia - Sensory Sensory: Mild to moderate loss, "not as sharp" - Best Language Best Language: No aphasia - Dysarthria Dysarthria: Normal - Extinction and Inattention Extinction and Inattention: Normal - NIHSS Total Score NIHSS Total Score: 1 TPA Checklist - Source Information Source: Patient - Eligibilty for IV tPA 1. LKW equal to or less than 4.5 hours be before treatment: No - LKW: 3-4.5 hrs Add. Warnings/Precautions Patient/family understanding: The patient/family members have been counseled and understood the risk, benefit , and alternatives of treatment.
[2018-01-01 22:32] LABS: Basophils # 0.1 K/mcL (0.0-0.2); Basophils % 0.9 %; Eosinophils # 0.2 K/mcL (0.0-0.6); Eosinophils % 2.8 %; Hematocrit 40.7 % (37.5-50.1); Hemoglobin 14.6 g/dL (12.9-16.9); Immature Granulocytes % 0.2 % (0-4); Lymphocytes # 3.1 K/mcL (0.6-4.6); Lymphocytes % 37.3 %; Mean Corpuscular HGB Conc 35.9 g/dL (31.6-35.5); Mean Corpuscular Volume 78.1 fL (83.0-100.0); Mean Platelet Volume 10.3 fL (9.4-12.4); Monocytes # 0.6 K/mcL (0.0-1.3); Monocytes % 7.2 %; Neutrophils # 4.2 K/mcL (1.6-8.9); Platelet Count 189 K/mcL (140-400); Red Blood Count 5.21 M/mcL (4.19-5.50); Red Cell Distribution Width 13.2 % (11.5-14.5); Segmented Neutrophils % 51.6 %
[2018-01-01 22:53] LABS: BUN/Creatinine Ratio 7 (6-26); Blood Urea Nitrogen 6 mg/dL (8-23); Calcium 9.3 mg/dL (8.6-10.3); Carbon Dioxide 28 mEq/L (23-29); Chloride 105 mEq/L (98-107); Glucose 161 mg/dL (70-105); Osmolality,Calculated 289 (280-300); Potassium 3.8 mEq/L (3.5-5.1); Sodium 139 mEq/L (136-145); Troponin I < 0.03 ng/mL (< 0.04); eGFR For Non-African Americans > 60 (> 60)
[2018-01-02] MEDS ORDERED: Naloxone 0.4 MG/ML INJ IVP PRN (05:55)
[2018-01-02] MEDS ORDERED: Acetaminophen 325 MG TABLET PO PRN (05:55)
[2018-01-02] MEDS ORDERED: Fluticasone Propionate Nasal 50 MCG/SPRAY BOTTLE NS PRN (06:00)
--- NOTE | 2018-01-02 06:05 | Internal Med History&Physical ---
Date of Encounter: 01/02/18 Time of Encounter: 05:50 Internal Medicine - H&P: HPI Chief complaint: RUE and righ facial numbness Admitted From: Emergency Dept Plans for Post Hospital Care: Home History of present illness: Mr. Collier is a 67 year old male who presents with right sided facial and right upper extremity numbness. Symptoms started roughly 28-30 hours prior to presentation. He had no paralysis, speech deficits, swallowing or choking episodes, or ataxia. Because of symptom persistence, he came to ER for evaluation and was admitted to hospitalist service. Of note, patient was just hospitalized here 3 weeks ago with TIA symptoms very similar to above. At that time, however, he also had right lower extremity numbness. He was found to have moderate carotid artery stenosis bilaterally. He is due to see Dr. Holloway in consultation this week. Presently, patient feels well with no symptoms except for some minimal residual numbness in his right upper extremity and right side of his face. He denies any chest pain, palpitations, shortness of breath, or nausea. Patient's risk factors for stroke include hypertension, hyperlipidemia, type 2 diabetes (diet-controlled), and active smoking. Past Med Surg Social Fam HX - Past Medical History Attestation: Yes The following information was validated with the patient. Source: patient, old records reviewed Medical history: arthritis, diabetes (diet controlled -- no meds), hyperlipidemia, hypertension, kidney stones, renal disease Additional medical history: Diverticulitis Psychiatric history: no psych history - Past Surgical History Surgical History: cholecystectomy Additional surgical history: shoulder each x 2. bilat carpal tunnel. hernia x 3. hand. right knee. left hip. left ankle - Social History Smoking Status: Current every day smoker Packs per day: 1 Smokeless Tobacco Status: No Alcohol use: none Drug use: none Current living situation: Home Activity Level: Independent ambulation Recent Out of Country Travel Within the Last 8 Weeks: No - Family History Mother Living Status: Age at : 80 Father Living Status: Age at : 75 Hx Family Cardiac Disorders: Yes Internal Medicine - H&P: Meds Fluticasone Propionate Nasal [Flonase] 2 puff NS DAILY PRN 12/13/17 [History] HYDROcodone/Acet 7.5/325 mg [[place] 7.5-325 mg] 1 tab PO Q4H PRN 12/13/17 [ History] Aspirin Enteric Coated [Aspirin EC] 81 mg PO DAILY 30 Days #30 tablet. [Rx] Atorvastatin [Lipitor] 40 mg PO HS 30 Days #30 tablet 12/14/17 [Rx] amLODIPine [Norvasc] 5 mg PO DAILY 30 Days #30 tablet 12/14/17 [Rx] 3 Allergy/AdvReac Type Severity Reaction Status Date / Time latex Allergy Rash Verified 01/01/18 21:54 Sulfa (Sulfonamide Allergy Hives Verified 01/01/18 21:54 Antibiotics) - Constitutional Constitutional: no chills, no fever(s), no night sweats - EENT Eyes: no blurry vision, no change in vision, no diplopia Ears: no ear pain, no tinnitus Nose, mouth and throat: no nasal congestion, no sinus pressure, no sore throat - Cardiovascular Cardiovascular ROS IM: no chest pain, no diaphoresis, no dyspnea, no dyspnea on exertion, no lightheadedness, no orthopnea, no palpitations, no syncope - Respiratory Respiratory: no cough, no hemoptysis, no chest congestion, no excessive phlegm production, no change in phlegm color - Gastrointestinal Gastrointestinal: no abdominal pain, no diarrhea, no hematemesis, no hematochezia, no melena, no nausea, no vomiting - Genitourinary Genitourinary ROS male: no dysuria, no flank pain, no hematuria - Musculoskeletal Musculoskeletal ROS IM: no arthralgias, no back pain - Integumentary Integumentary IM: no rash, no jaundice - Neurological Neurological ROS: numbness, tingling, no behavioral changes, no confusion, no convulsions, no dizziness, no focal weakness, no frequent falls, no headache(s) , no vertigo Additional comments: facial and RUE numbness and tingling - Psychiatric Psychiatric: no anxiety, no depression - Endocrine Endocrine IM: no cold intolerance, no heat intolerance, no polydipsia, no polyphagia, no polyuria - Hematologic/Lymphatic Hematologic/Lymphatic: no easy bruising - Allergic/Immunologic Allergic/Immunologic: no wheezing, no GI upset with certain foods - Constitutional Vitals: Temp Pulse Resp BP Pulse Ox 97.7 F 66 16 140/74 97 01/02/18 04:13 01/02/18 04:13 01/02/18 04:13 01/02/18 04:13 01/02/18 03:41 General appearance: Present: cooperative, A&O X 3, pleasant, no acute distress, answers questions appropriately Exam: see below - Head Head exam: Present: atraumatic, normal inspection - Eye Eye exam: Present: EOMI, PERRL. Absent: scleral icterus Pupils: Present: normal accommodation - ENT ENT exam: Present: mucous membranes dry, normal exam, normal oropharynx - Neck Neck exam general surgery: Present: full ROM, supple. Absent: tenderness, nuchal rigidity, thyromegaly - Expanded Neck Exam Neck exam: Absent: carotid bruit - Respiratory Respiratory exam: Present: CTAB. Absent: chest wall tenderness, rales, respiratory distress, rhonchi, wheezes - Cardiovascular Cardiovascular exam: Present: RRR, +S1, +S2. Absent: diastolic murmur, systolic murmur - GI/Abdominal GI/Abdominal exam: Present: normal bowel sounds, soft. Absent: hepatomegaly, mass, splenomegaly, tenderness - Extremities Exam Extremities exam: Present: normal capillary refill, warm, radial pulses palpable and symmetrical. Absent: calf tenderness, pedal edema, tenderness - Back Exam Back exam: Absent: CVA tenderness (L), CVA tenderness (R) - Neurological Exam Neurological exam: Present: alert, motor sensory deficit (decreased sensation in RUE; slight change in right face), oriented X3, strengths equal and symetr throughout - Psychiatric Psychiatric exam: Present: normal affect, normal mood - Skin Skin exam: Present: dry, intact, warm Internal Med - H&P Results - Labs CBC & Chem 7: 01/01/18 22:20 01/01/18 22:20 - EKG Data -: EKG Interpreted by Myself - EKG Data Prior EKG available for review: no EKG comments: 01/02/18 06:15 NSR - Diagnostic Studies CT scan - head Status: image reviewed by me (negative) - Assessment and plan (1) Sensory deficit, right Current Visit: Yes Status: Acute Assessment and plan: 1. Will order MRI brain. 2. Consult neurology given recurrent episodes of facial and RUE numbness. 3. Neurochecks per stroke protocol. 4. Continue ASA, STATIN. 5. Monitor glucose closely for hypoglycemia. 6. No need to repeat ECHO or Carotid Dopplers as they were just done 3 weeks ago. Results reviewed. (2) Hypertension Current Visit: Yes Status: Chronic Assessment and plan: 1. Hold home BP meds for now in the setting of possible acute stroke. 2. Monitor BP closely and consider treatment if SBP > 180. Qualifiers: Hypertension type: essential hypertension Qualified Code(s): I10 - Essential (primary) hypertension (3) Diabetes mellitus Current Visit: Yes Status: Chronic Assessment and plan: 1. Patient reports diet controlled diabetes. 2. Monitor glucose closely and use SSI if necessary. 3. Avoid hypoglycemia. Qualifiers: Diabetes mellitus type: type 2 Diabetes mellitus manager intermediate insulin use: without detention use Diabetes mellitus complication status: without complication Qualified Code(s): E11.9 - Type 2 diabetes mellitus without complications (4) DVT prophylaxis Current Visit: Yes Status: Acute Assessment and plan: 1. Heparin SQ.
[2018-01-02] MEDS: Aspirin Enteric Coated 81 MG Tablet PO SCH (08:14)
[2018-01-02] MEDS: *HR* HYDROcodone/Acet 7.5/325 mg TABLET PO PRN ×2 (08:14→17:49)
[2018-01-02] MEDS: *HR* Heparin 5,000 UNIT/ML VIAL SQ SCH ×2 (08:14→17:49)
[2018-01-02] MEDS: 0.9 % Sodium Chloride 1,000 ML IVC SCH (08:15)
--- NOTE | 2018-01-02 10:58 | Event Note ---
Date of Encounter: 01/02/18 Time of Encounter: 10:57 Patient evaluated at bedside, hemodynamically stable. Pending MRI of the brain to r/o stroke.
--- NOTE | 2018-01-02 11:26 | Neurology - Consult Note ---
Date of Encounter: 01/02/18 Time of Encounter: 11:23 Assessment and Plan (1) Sensory deficit, right Current Visit: Yes Status: Acute 67 year old man presents to the hospital for right sided facial and RUE numbness. Patient experienced similar symptoms 3 weeks ago that self resolved and he was diagnosed with a TIA and started on aspirin 81mg daily and atorvastatin 40mg daily which the patient has been taken. Carotid doppler at that time revealed 60-79% stenosis on the left and he was scheduled to follow up with vascular surgery this week. His current symptoms had been present for one day before he decided to visit the ED. CT head in the ED was unremarkable. Since his admission he states his numbness has improved but he still has diminished sensation on the right side of his face and RUE worse at the right hand. No motor weakness appreciated. no speech changes. -Given patient's history of new onset numbness after a prior history of TIA this likely represents a stroke -sensory deficit in Right face and RUE, no motor deficit -Follow up MRI -Echo obtained obtained on 12/14: LVEF 65% -Carotid doppler obtained on 12/14: 40-59% stenosis on right, 60-79%stenosis on left. -Currently on ASA, Statin -Added plavix for dual antiplatelet therapy as patient experienced a CVA on aspirin. -Obtained vascular surgery consult as patient has history of carotid stenosis on the left and is symptomatic -Will obtain CT angio of the head and neck as well (2) Hypertension Current Visit: Yes Status: Chronic Holding home BP meds at this time, BP readings have ranged between 127-140 systolic. Continue to monitor Qualifiers: Hypertension type: essential hypertension Qualified Code(s): I10 - Essential (primary) hypertension (3) Diabetes mellitus Current Visit: Yes Status: Chronic Diet controlled, patient denies taking medications for his diabetes POC glucose readings have been elevated ranging from 140-168 Consider initiating medications for diabetes management and obtaining a HbA1C Qualifiers: Diabetes mellitus type: type 2 Diabetes mellitus proofer insulin use: without proofer use Diabetes mellitus complication status: without complication Qualified Code(s): E11.9 - Type 2 diabetes mellitus without complications (4) DVT prophylaxis Current Visit: Yes Status: Acute SubQ heparin History of Present Illness Chief complaint: numbness HPI: Mr. Collier is a 67 year old male with a past medical history of HTN, HLD, DM, and current 1PPD smoking who was admitted to the hospital for right sided numbness in his upper extremity and face. He states he also felt as if he had some facial drooping that resolved spontaneously. His symptoms began one day prior to presenting to the ED. Since he was admitted, the patient states that his numbness has improved, but he still has some residual deficit, mainly in the right hand. CT head was unremarkable, awaiting MRI currently. Of note, the patient was admitted to the hospital for similar symptoms of right sided facial , RUE, and RLE numbness which self-resolved. At that time he underwent a carotid doppler study that revealed 60-79% stenosis of the left carotid artery. He has an upcoming appointment with vascular surgery this week. MRI three weeks ago did not reveal an acute abnormality. He has been taking aspirin 81mg and Atorvastatin 40mg since his TIA three weeks ago. He states that he does not take any medications for his diabetes and does not know if he has had an A1C tested. Past Med Surg Social Fam HX - Past Medical History Medical history: arthritis, diabetes (diet controlled -- no meds), hyperlipidemia, hypertension, kidney stones, renal disease Additional medical history: Diverticulitis Psychiatric history: no psych history - Past Surgical History Surgical History: cholecystectomy Additional surgical history: shoulder each x 2. bilat carpal tunnel. hernia x 3. hand. right knee. left hip. left ankle - Social History Smoking Status: Current every day smoker Packs per day: 1 Smokeless Tobacco Status: No Alcohol use: none Drug use: none - Family History Mother Living Status: Age at : 80 Father Living Status: Age at : 75 Hx Family Cardiac Disorders: Yes Medications and Allergies Fluticasone Propionate Nasal [Flonase] 2 puff NS DAILY PRN 12/13/17 [History] HYDROcodone/Acet 7.5/325 mg [[place] 7.5-325 mg] 1 tab PO Q4H PRN 12/13/17 [ History] Aspirin Enteric Coated [Aspirin EC] 81 mg PO DAILY 30 Days #30 tablet. [Rx] Atorvastatin [Lipitor] 40 mg PO HS 30 Days #30 tablet 12/14/17 [Rx] amLODIPine [Norvasc] 5 mg PO DAILY 30 Days #30 tablet 12/14/17 [Rx] 3 Allergy/AdvReac Type Severity Reaction Status Date / Time latex Allergy Rash Verified 01/01/18 21:54 Sulfa (Sulfonamide Allergy Hives Verified 01/01/18 21:54 Antibiotics) All Systems: The remainder of the systems were reviewed and are negative - Eyes Eyes: bilateral: blurred vision (chronic, wears corrective lenses), dry eye - Cardiovascular Cardiovascular ROS IM: no chest pain, no chest pain at rest, no claudication, no dyspnea, no dyspnea on exertion, no irregular heart rhythm - Respiratory Respiratory IM: no dyspnea on exertion, no wheezing - Musculoskeletal Musculoskeletal ROS IM: arthralgias, back pain, numbness, radiating pain into limb, no abnormal gait, no muscle weakness Musculoskeletal: bilateral: knee pain - Neurological Neurological ROS: numbness, paresthesias, sensory deficit, no abnormal gait, no abnormal hearing, no abnormal movements, no abnormal speech, no confusion, no dizziness, no focal weakness, no headache(s), no loss of vision, no syncope, no tremor(s), no weakness - Psychiatric Psychiatric general PM: no confusion Physical Examination - Vital Signs Vital Signs: Initial Vital Signs Temp Pulse Resp BP Pulse Ox 98.1 F 82 16 195/93 96 01/01/18 21:49 01/01/18 21:49 01/01/18 21:49 01/01/18 21:49 01/01/18 21:49 - Constitutional General appearance: comfortable - Neurologic Detailed motor examination: grossly full strength in all extremities Motor examination - right side: 5/5: biceps, triceps, ski tow operator, hip flexors, tibialis Anterior, toe extension (EHL), plantarflexion Motor examination - left side: 5/5: biceps, triceps, hip flexors, ski tow operator, tibialis Anterior, toe extension (EHL), plantarflexion Detailed sensory examination: other (decreased sensation to light touch right side of face and dimished sensation in the RUE, worse at right hand.) Reflexes: Biceps: 2+, Triceps: 2+, Brachioradialis: 2+, Patella: 3+ (no clonus) Mental Status Examination: awake, alert, oriented to person, oriented to place, oriented to time, follows commands appropriately, answers questions appropriately, no aphasia, lucid Cranial nerve examination: PERRL, EOMI, no facial asymmetry is present, no dysarthria, hearing is intact symmetrically, soft palate elevates bilaterally upon phonation, flexes SCM and trapezius muscles symmetrically with full power, tongue protrudes midline, no atrophy or facial fasiculations present Cerebellar examination: no dysmetria (normal heel to padilla bilaterally), no difficulty with rapid alternating movements Results - Laboratory Findings CBC and BMP: 01/01/18 22:20 01/01/18 22:20 Abnormal lab findings: Abnormal lab results MCV 78.1 fL (83.0-100.0) L 01/01/18 22:20 MCHC 35.9 g/dL (31.6-35.5) H 01/01/18 22:20 BUN 6 mg/dL (8-23) L 01/01/18 22:20 Glucose 161 mg/dL (70-105) H 01/01/18 22:20 POC Glucose 140 mg/dL (70-99) H 01/02/18 07:26 Consult Discharge Plan - Plan Referrals: Alfa Win MD [Primary Care Provider] -
[2018-01-02] MEDS ORDERED: Isovue-370 500 ML INFUS..BTL IV ONE (15:48)
[2018-01-02 21:58] LABS: Estimated Average Glucose 143 mg/dl; Hemoglobin A1C 6.6 %
[2018-01-03] MEDS: 0.9 % Sodium Chloride 1,000 ML IVC SCH (01:05)
[2018-01-03 04:40] LABS: Basophils # 0.1 K/mcL (0.0-0.2); Eosinophils # 0.3 K/mcL (0.0-0.6); Eosinophils % 2.7 %; Hematocrit 42.6 % (37.5-50.1); Hemoglobin 15.6 g/dL (12.9-16.9); Immature Granulocytes % 0.5 % (0-4); Lymphocytes # 4.3 K/mcL (0.6-4.6); Lymphocytes % 43.2 %; Mean Corpuscular HGB Conc 36.6 g/dL (31.6-35.5); Mean Corpuscular Hemoglobin 28.8 pg (28.0-33.3); Mean Corpuscular Volume 78.6 fL (83.0-100.0); Mean Platelet Volume 10.5 fL (9.4-12.4); Monocytes # 0.7 K/mcL (0.0-1.3); Monocytes % 7.2 %; Neutrophils # 4.5 K/mcL (1.6-8.9); Platelet Count 197 K/mcL (140-400); Red Blood Count 5.42 M/mcL (4.19-5.50); Red Cell Distribution Width 13.2 % (11.5-14.5); Segmented Neutrophils % 45.4 %
[2018-01-03 05:00] LABS: Alanine Aminotransferase 14 Units/L (7-52); Albumin 3.8 g/dL (3.5-5.7); Albumin/Globulin Ratio 1.4 (1.1-2.2); Alkaline Phosphatase 44 Units/L (34-104); Aspartate Amino Transferase 16 Units/L (13-39); BUN/Creatinine Ratio 9 (6-26); Bilirubin,Total 0.6 mg/dL (0.3-1.0); Blood Urea Nitrogen 7 mg/dL (8-23); Calcium 9.2 mg/dL (8.6-10.3); Carbon Dioxide 25 mEq/L (23-29); Chloride 107 mEq/L (98-107); Cholesterol 133 mg/dL (< 200); Globulin 2.7 g/dL (2.4-3.5); Glucose 126 mg/dL (70-105); HDL Cholesterol 33 mg/dL (40-59); LDL Cholesterol,Calculated 76 mg/dL (0-99); Magnesium 1.9 mg/dL (1.6-2.6); Osmolality,Calculated 286 (280-300); Potassium 3.8 mEq/L (3.5-5.1); Sodium 138 mEq/L (136-145); Total Protein 6.5 g/dL (6.4-8.9); Triglycerides 122 mg/dL (< 150); eGFR For Non-African Americans > 60 (> 60)
[2018-01-03] MEDS: *HR* Heparin 5,000 UNIT/ML VIAL SQ SCH (05:15)
[2018-01-03] MEDS: *HR* HYDROcodone/Acet 7.5/325 mg TABLET PO PRN ×2 (05:15→13:12)
[2018-01-03] MEDS: Aspirin Enteric Coated 81 MG Tablet PO SCH (09:51)
--- NOTE | 2018-01-03 10:22 | Neurology Progress Note ---
Date of Encounter: 01/03/18 Time of Encounter: 10:17 Assessment and Plan (1) Sensory deficit, right Current Visit: Yes Status: Acute MRI revealed evidence of an acute left thalamic infarct CT angiogram revealed <25% stenosis of the proximal internal carotid arteries Patient will follow up with vascular surgeon as outpatient for further evaluation Etiology of stroke is unknown at this time Patient is currently on aspirin and plavix, recommend continuing dual anti- platelet therapy as outpatient Discussed smoking cessation and blood pressure management (2) Hypertension Current Visit: Yes Status: Chronic Patient is on amlodipine 5mg at home BP meds held while in hospital for permissive hypertension Continue antihypertensives as outpatient and follow up with PCP for proper management of blood pressure Qualifiers: Hypertension type: essential hypertension Qualified Code(s): I10 - Essential (primary) hypertension (3) Diabetes mellitus Current Visit: Yes Status: Chronic HgbA1c resulted at 6.6 f/u with PCP for continued DM management Qualifiers: Diabetes mellitus type: type 2 Diabetes mellitus long-term insulin use: without intermission coordinator use Diabetes mellitus complication status: without complication Qualified Code(s): E11.9 - Type 2 diabetes mellitus without complications (4) DVT prophylaxis Current Visit: Yes Status: Acute subQ heparin Subjective Principal diagnosis: Acute infarct left thalamus Interval history: Patient seen and examined this morning, he has had no new symptoms overnight. He states that his numbness has somewhat decreased from the previous day. Denies any new areas of numbness, headache, changes in speech, confusion, or motor deficits. Patient was notified of the MRI findings of an acute left side thalamic infarct and the negative CT angio study of the carotids. He verbalized his understanding. Objective - Constitutional Vitals: Temp Pulse Resp BP Pulse Ox 98 F 71 16 156/91 97 01/03/18 07:48 01/03/18 09:39 01/03/18 09:39 01/03/18 09:39 01/03/18 07:48 General appearance: Present: A&O X 3 - Head Head exam: Present: atraumatic, normal inspection - Eye Eye exam: Present: EOMI Pupils: Present: PERRL - Extremities Exam Extremities exam: Present: full ROM - Neurological Exam Sensorimotor examination: Present: other (parasthesias and diminished sensation on the right side of face and right upper extremity, mainly in the right hand.) Motor Examination: Present: grossly full strength in all extremities Motor examination - right side: 5/5: biceps, triceps, manager fire, hip flexors, toe extension (EHL), plantarflexion Motor examination - left side: 5/5: biceps, triceps, hip flexors, manager fire, tibialis Anterior, toe extension (EHL), plantarflexion Sensation intact: Present: other (decreased sensation to light touch right side of face and dimished sensation in the RUE, worse at right hand.) Mental Status Examination: Present: awake, alert, oriented to person, oriented to place, oriented to time, follows commands appropriately, answers questions appropriately, no aphasia Cranial nerve examination: Present: PERRL, EOMI, no facial asymmetry is present , no dysarthria, hearing is intact symmetrically, soft palate elevates bilaterally upon phonation, flexes SCM and trapezius muscles symmetrically with full power, tongue protrudes midline, no atrophy or facial fasiculations present Results - Laboratory Findings CBC and BMP: 01/03/18 04:09 01/03/18 04:09 Abnormal lab findings: Abnormal lab results MCV 78.6 fL (83.0-100.0) L 01/03/18 04:09 MCHC 36.6 g/dL (31.6-35.5) H 01/03/18 04:09 BUN 7 mg/dL (8-23) L 01/03/18 04:09 Glucose 126 mg/dL (70-105) H 01/03/18 04:09 POC Glucose 149 mg/dL (70-99) H 01/03/18 07:54 Hemoglobin A1c 6.6 % (-5.6) H 01/02/18 16:19 HDL Cholesterol 33 mg/dL (40-59) L 01/03/18 04:09 Consult Discharge Plan - Plan Referrals: Alfa Win MD [Primary Care Provider] -
[2018-01-03 13:44] VITALS: BP 154/95
--- NOTE | 2018-01-03 14:17 | Discharge Summary ---
Orders not resulted at time of discharge: Pending orders 01/02/18 06:00 ECG 12 lead ECG [ECG] AM 0600 Date of Encounter: 01/03/18 Time of Encounter: 14:14 - Discharge Diagnosis (1) Lacunar infarct, acute Priority: Primary Status: Acute (2) Hypertension Priority: Primary Status: Chronic Qualifiers: Hypertension type: essential hypertension Qualified Code(s): I10 - Essential (primary) hypertension (3) HLD (hyperlipidemia) Priority: Primary Status: Chronic Qualifiers: Hyperlipidemia type: unspecified Qualified Code(s): E78.5 - Hyperlipidemia , unspecified (4) Diabetes mellitus Priority: Secondary Status: Chronic Qualifiers: Diabetes mellitus type: type 2 Diabetes mellitus fci insulin use: without buttermilk drier operator use Diabetes mellitus complication status: without complication Qualified Code(s): E11.9 - Type 2 diabetes mellitus without complications Hospital course: HOSPITAL COURSE: He is a 67-year-old male, who suddenly developed right-sided numbness. MRI of brain showed left thalamic lacunar infarct. His numbness nearly completely subsided; has very small area left next to his nose (on the right side). He has normal speech, swallowing and gait. Neurologic consult was obtained. His stroke workup was negative except of mild (below 25%) stenosis of 1 of his carotid arteries. CONDITION AT DISCHARGE: He feels good. Denies chest pain. Denies difficulty breathing. Skin: Free of rash and discoloration. Respiratory: Normal breath sounds with no crackles and wheezes bilaterally. CV: Heart is regular with no gallop or murmur. GI: Abdomen is flat and soft with no palpable mass or visceromegaly. Neuro exam: Normal speech, swallowing and gait. There is a small area of numbness on the right side of his face; see above. SEE DISCHARGE ORDERS/MEDICATIONS.. In addition to his enteric coated aspirin he will be taking Plavix. Discharge discussed with: patient, nurse - Time Spent with Patient Total time spent providing and/or coordinating discharge services: Greater than 30 minutes (40 minutes) - Discharge Medications Prescriptions: Clopidogrel [Plavix] 75 mg PO DAILY #30 tablet Home Medications: Fluticasone Propionate Nasal [Flonase] 2 puff NS DAILY PRN 12/13/17 [History] HYDROcodone/Acet 7.5/325 mg [[place] 7.5-325 mg] 1 tab PO Q4H PRN 12/13/17 [ History] Aspirin Enteric Coated [Aspirin EC] 81 mg PO DAILY 30 Days #30 tablet. [Rx] Atorvastatin [Lipitor] 40 mg PO HS 30 Days #30 tablet 12/14/17 [Rx] amLODIPine [Norvasc] 5 mg PO DAILY 30 Days #30 tablet 12/14/17 [Rx] Clopidogrel [Plavix] 75 mg PO DAILY #30 tablet 01/03/18 [Rx] Allergies/Adverse Reactions: 3 Allergy/AdvReac Type Severity Reaction Status Date / Time latex Allergy Rash Verified 01/01/18 21:54 Sulfa (Sulfonamide Allergy Hives Verified 01/01/18 21:54 Antibiotics) Date of admission: 01/02/18 00:34 Primary care physician: Alfa Win MD Consults: 01/02/18 05:56 Consult to Neurology [CONS] Routine Consulting Provider: Neurology [facility] Reason for Consult: right facial and RUE numbness -- recurrent Call Completed: No Discharging clinician: Fan Shaffer Anticipated date of discharge: 01/03/18 - Constitutional Vitals: Temp Pulse Resp BP Pulse Ox 98 F 72 16 154/95 97 01/03/18 07:48 01/03/18 13:35 01/03/18 09:39 01/03/18 13:35 01/03/18 07:48 General appearance: Present: cooperative, A&O X 3, pleasant, no acute distress, answers questions appropriately Exam: xx - Patient Status Disposition: Home, Self-Care Condition: Good Overall status at discharge: patient is progressing back to baseline - Discharge Instructions Instructions: Clopidogrel (By mouth), Cigarette Smoking and Your Health (GEN), Ischemic Stroke (DC), Ischemic Stroke (GEN), Hemorrhagic Stroke (DC), Hemorrhagic Stroke (GEN), Right Hemispheric Stroke (DC), Right Hemispheric Stroke (GEN), Left Hemispheric Stroke (DC), Left Hemispheric Stroke (GEN), Self Care Measures After a Stroke (DC), Self Care Measures After a Stroke (GEN), Secondhand Smoke Exposure in Children (GEN), Dizziness (GEN), Right Hemispheric Stroke, Community Living Instructor (GEN), Cigarette Smoking and Your Health, Community Living Instructor (GEN), Hemorrhagic Stroke, Community Living Instructor (GEN), Dizziness, Community Living Instructor (GEN), Ischemic Stroke, Community Living Instructor (GEN), Left Hemispheric Stroke, Community Living Instructor (GEN) Follow Up With: Alfa Win MD [Primary Care Provider] - (cash is no longer in practice patient will have to call and make appt.) - Diet and Activity Activity: resume usual activities as tolerated Diet: diabetic diet - VTE Reasons for not Prescribing Prophylaxis: Treatment not Indicated - Low risk for VTE Deep Vein Thrombosis/Pulmonary Embolism Present on Admission: No
--- NOTE | 2018-01-08 08:31 | Electrocardiograph Report ---
[address] [place] [address] Test Date: 2018-01-03 Pat Name: Ryan Collier Department: 111 Room: 2NE19 Gender: Buffer Copper: : 1950 Requested By: Fan Shaffer Order Number: [id number] Reading MD: Uday Granados Measurements Intervals [place] Rate: 67 P: -5 DC: 139 QRS: 7 QRSD: 94 T: 15 QT: 402 QTc: 418 Interpretive Statements SINUS RHYTHM POSSIBLE SEPTAL MYOCARDIAL INFARCTION, OF INDETERMINATE AGE Electronically Signed On 01-08-2018 8:29:39 EDT by Uday Granados
== END 2018-01-03 16:29 | disposition home or self-care (01) ==
LOC: EMEROOARM 21:46 → 2NENU 21:46 → SUATTDRO 01-02 00:34 → 2NENU 01-02 01:36
PROVIDERS: ADMIT Family Medicine; ATTEND Internal Medicine

== ENCOUNTER 2018-02-02 07:34 | Inpatient (IN) ==
--- NOTE | 2018-02-01 14:15 | Anesthesia Evaluation PreOp ---
Date of Encounter: 02/02/18 Time of Encounter: 08:19 - Past History Planned Operation: left CEA Cardiac History: HTN, Hyperlipidemia, Other (PAD) Pulmonary History: Smoker FLOOR CLERK History: CVA (12-27 affecting right face), TIA (remote) Other Medical History: Diabetes Type II (diet controlled) Anesthesia History: No Prior Anesthetic Complications, Past Anesthesia (kirsten, shoulder, CTR, hernia, left hip and ankle, right knee) Alcohol Use: none Drug use: none Medications and Allergies Fluticasone Propionate Nasal [Flonase] 2 puff NS HS PRN 12/13/17 [History] HYDROcodone/Acet 7.5/325 mg [[place] 7.5-325 mg] 1 tab PO Q4H PRN 12/13/17 [History] Aspirin Enteric Coated [Aspirin EC] 81 mg PO DAILY 30 Days #30 tablet.dr 12/14/17 [Rx] Atorvastatin [Lipitor] 40 mg PO HS 30 Days #30 tablet 12/14/17 [Rx] amLODIPine [Norvasc] 5 mg PO DAILY 30 Days #30 tablet 12/14/17 [Rx] Clopidogrel [Plavix] 75 mg PO DAILY #30 tablet 01/03/18 [Rx] Ascorbic Acid [Vitamin C] 500 mg PO DAILY 02/02/18 [History] Pyridoxine HCl [Vitamin B-6] 100 mg PO DAILY 02/02/18 [History] Vitamin E Acid Succinate [Vitamin E] 400 units PO DAILY 02/02/18 [History] Allergy/AdvReac Type Severity Reaction Status Date / Time latex Allergy Rash Verified 01/01/18 21:54 Sulfa (Sulfonamide Allergy Hives Verified 01/01/18 21:54 Antibiotics) - Meds/Allergy Pre-op Review Medications Reviewed: Yes Allergies Reviewed: Yes Beta Blockers on Current Med List: No Anesthesia Results - Labs Laboratory Tests 01/02/18 01/26/18 01/26/18 16:19 10:45 10:45 Hgb Hct Plt Count PT 11.7 INR 1.0 APTT Sodium 138 Potassium 3.3 L Chloride 103 Carbon Dioxide 29 BUN 6 L Creatinine 0.76 Hemoglobin A1c 6.6 H 01/26/18 01/27/18 10:45 13:08 Hgb 14.5 Hct 42.4 Plt Count 198 PT INR APTT 38.3 H Sodium Potassium Chloride Carbon Dioxide BUN Creatinine Hemoglobin A1c - Imaging EKG: report reviewed (SINUS RHYTHM POSSIBLE SEPTAL MYOCARDIAL INFARCTION, OF INDETERMINATE AGE) Additional studies: stress test: Impression: Pharmacologic stress ECG is non diagnostic for ischemia due to baseline non-specific ST and T changes. Gated EF = 64%. Small sized, mild intensity, fixed basal to mid inferior perfusion defect with normal wall motion. These findings are most consistent with artifact. Perfusion imaging was negative for ischemia or infarct. Anesthesia Exam Selected Entries 02/02/18 07:57 Temperature 98.3 F Pulse Rate 79 Respiratory Rate 18 Blood Pressure 136/79 O2 Sat by Pulse Oximetry 95 Weight: 105kg NPO (# of Hours): 8 - HEENT Pupil (Motor): EOMI Mallampati: II Teeth: Normal Oral Opening: Greater than 3 - FLOOR CLERK LOC: Oriented FLOOR CLERK Motor: Normal RUE, Normal LUE, Normal RLE, Normal LLE, Normal Face FLOOR CLERK Sensory: Normal: RUE, LUE, RLE, LLE, Face - Cardiac Rhythm: Regular Murmur: None - Pulmonary Breath Sounds: bilateral Clear Respiratory Effort: Symmetrical Anesthesia Assess/Plan ASA Score: 3 (HTN, PAD, smoker) Anesthetic Plan: General Monitoring Plan: Standard Monitors, A-Line Recovery Plan: PACU (agrees to GA and a-line.)
[~2018-02-02 07:34] MED LIST: Bupivacaine-MPF 0.25% 10 ML VIAL ONE; Heparin 1,000 UNITS/500 mL 1,000 ML ONE; Protamine Sulfate 50 MG/5 ML VIAL IVP ONE
[2018-02-02] MEDS ORDERED: *HR* Remifentanil 1 MG VIAL IVP ONE (07:58)
[2018-02-02] MEDS ORDERED: *HR* FentaNYL (PF) 100 MCG/2 ML VIAL ONE ×2 (07:58→09:45)
[2018-02-02] MEDS ORDERED: *HR* Midazolam HCl 2 MG/2 ML VIAL ONE (07:58)
[2018-02-02] MEDS ORDERED: *HR* Propofol 200 MG/20 ML VIAL IVP ONE ×3 (07:58→12:48)
[2018-02-02] MEDS ORDERED: Lidocaine -MPF 4% 5 ML AMPUL ONE (07:59)
[2018-02-02] MEDS ORDERED: Lidocaine -MPF 2% 2 ML VIAL ONE ×2 (07:59→12:51)
[2018-02-02] MEDS ORDERED: *HR* Succinylcholine 200 MG/10 ML VIAL IVP ONE (07:59)
[2018-02-02] MEDS ORDERED: *HR* Phenylephrine 10 MG/ML VIAL ONE (08:02)
[2018-02-02] MEDS ORDERED: *HR* Heparin 5,000 UNIT/ML VIAL ONE ×2 (08:12→11:46)
[2018-02-02] MEDS ORDERED: CeFAZolin Syr 2,000MG/20 ML 2,000 MG/20 ML SYRINGE IVPB ONE (08:16)
[2018-02-02] MEDS ORDERED: Heparin 1,000 UNITS/500 mL 500 ML ONE (08:23)
[2018-02-02] MEDS ORDERED: Ringers Solution, Lactated 1,000 ML IVC SCH (08:30)
[2018-02-02] MEDS ORDERED: LIDOCAINE 1% PF 2 ML AMPUL ONE (08:35)
[2018-02-02] MEDS ORDERED: Albuterol 2.5 MG/3 ML NEBULIZER ONE (08:46)
[2018-02-02] MEDS ORDERED: EPHEDrine 50 MG/ML VIAL ONE (10:08)
[2018-02-02] MEDS ORDERED: Ondansetron 4 MG/2 ML VIAL ONE (10:34)
[2018-02-02] MEDS ORDERED: Dexamethasone 4 MG/ML VIAL ONE (10:34)
[2018-02-02] MEDS ORDERED: *HR* Promethazine 25 MG/ML VIAL IVP PRN (10:41)
[2018-02-02] MEDS ORDERED: Acetaminophen IV 1,000 MG/100 ML INFUS..BTL IVPB ONE (10:41)
[2018-02-02] MEDS ORDERED: *HR* Labetalol 20 MG/4 ML SYRINGE IVP PRN ×2 (10:41→14:13)
[2018-02-02] MEDS ORDERED: Ondansetron 4 MG/2 ML VIAL IVP ONE (10:41)
--- NOTE | 2018-02-02 10:49 | History & Physical Report ---
Date of Encounter: 02/02/18 Time of Encounter: 09:00 24 Hour HP Update - Instructions Instructions: If the History and Physical is less than 30 days old and was completed prior to A.M. admission and or procedure and has NOT been updated on calendar day of procedure please complete this update prior to performing procedure. - Update Patient reports changes in Medical Condition: No Changes in examination, assessment, or condition: No Changes in Medication: No Preop tests/diagnostics Reviewed: Yes Surgery Remains Indicated: Yes Consent for Planned Operative Procedure(s) Verified: Yes - Pre-Operative Checklist Preoperative Checklist Indicated: Yes Prophylactic Antibiotic Ordered: Yes Home Medications Include Beta Ene: No Beta Ene Taken Today (Day of Surgery): No Beta Ene Taken Yesterday (Day Prior to Surgery): No Is VTE Prophylaxis Indicated?: Yes
[2018-02-02] MEDS ORDERED: *HR* Labetalol 100 MG/20 ML MDV ONE (11:08)
[2018-02-02] MEDS ORDERED: Vancomycin 1,000 MG, Sodium Chloride IRRigation 1,000 ML IR ONE (11:15)
[2018-02-02] MEDS ORDERED: NiCARdipine 2.5 MG/10 ML Syringe IVPB ONE (11:44)
--- NOTE | 2018-02-02 13:07 | Operative Note ---
Date of procedure: 02/02/18 Pre-op diagnosis: Symptomatic left internal carotid artery stenosis Post-op diagnosis: same Procedure: Left carotid endarterectomy with Hemashield patch angioplasty Complications: None Anesthesia: GETA Surgeon: Jagjit Holloway Was there an workers compensation claims assistant present: No Estimated blood loss (cc): 50 Specimen: Left carotid plaque Condition: stable Disposition: PACU Procedure in Detail: Indications: The patient is a 67-year-old male who recently sustained a left hemispheric transient ischemic attack. was found have an 60-79% left internal carotid artery stenosis. A left carotid endarterectomy was recommended to reduce his risk of stroke. Procedure: The patient was identified in the preoperative area. The risks, benefits, and alternatives of the procedure were discussed and all questions were answered. The patient was then taken to the operating room and placed in supine position on the operating table. After the induction of general endotracheal anesthesia, the patient was cleaned and draped in normal sterile fashion. A longitudinal incision was made anterior to the left sternocleidomastoid muscle. Hemostasis was obtained via electrocautery. Through a process of blunt, sharp, and electrocautery dissection, the platysma was incised with electrocautery. The jugular vein was identified. The facial vein was dissected proximally. The vesel was then ligtated with 2-0 silk suture and divided. The jugular vein was then retracted to expose the carotid bifurcation. The patient received 2000 units of heparin intravenously at this time. Proximal dissection of the common and external carotid arteries were performed circumferentially. Dissection of the internal carotid was performed circumferentially. Vessels loops were passed around the internal and external carotid and an umbilical tape was passed from the common carotid artery. The patient received additional 3000 units of heparin intravenously. Additional anticoagulation was given. The procedure to maintain adequate anticoagulation. After waiting adequate time for the heparin to circulate, the vessels were occluded and a longitudinal arteriotomy was made into the common carotid artery and extended into the internal carotid beyond the plaque. The plaque was long, extended distally and was heavily calcified. Vigorous pulsatile retrograde flow was noted from the internal carotid artery upon release of the vessel loop. Rapid pulsatile retrograde flow was consistent with significant retrograde perfusion. Given this finding, a shunt was not placed. A dental [place] was used to perform a standard endarterectomy. Proximal and distal endpoints were inspected an no elevated flaps were noted. A Hemashield patch was cut to fit the defect and sutured in place with running 6-0 Prolene. Prior to completing the closure, each vessel was flushed and then reoccluded. Heparinized saline was infused into the lumen. The patch was completed. Flow was restored in the external carotid artery, followed the common carotid artery, lastly the internal carotid artery was opened. A low resistance arterialized signal was present within the internal carotid artery beyond the patch. Thrombin and Gelfoam were used to aid in hemostasis. Meticulous hemostasis was obtained throughout the wound with electrocautery. Platelet rich and platelet poor plasma were infused into the wounds. The sternocleidomastoid was reapproximated with interrupted 3-0 Vicryl. Platelet rich and platelet poor plasma were infused into the wound. A TLS drain was brought through a separate stab incision and sutured in place with 0 silk suture. The platysma was reapproximated with running 3-0 Vicryl. Local anesthetic was infused in the skin. A 3-0 Monocryl was used to reapproximate the skin. A sterile dressing was applied. The patient was extubated, taken to the recovery room in stable condition.
[2018-02-02] MEDS: *HR* Morphine 2 MG/ML SYRINGE IVP PRN ×2 (13:35→13:48)
--- NOTE | 2018-02-02 13:46 | Anesthesia Evaluation Post Op ---
Date of Encounter: 02/02/18 Time of Encounter: 13:45 - Vital Signs Vital Signs: Vital Signs/O2 Sat, Most Current Temp Pulse Resp BP Pulse Ox 97.5 F L 76 18 117/74 93 02/02/18 13:33 02/02/18 13:33 02/02/18 13:33 02/02/18 13:33 02/02/18 13:33 - Lungs Lungs: Clear Ascult./Percussion - Airway Airway: Non-obstructed - Cardiovascular Regular Rate - Mental Status Mental Status: Alert & Oriented, Answers Appropriately - Pain Pain Scale: 2 Pain Scale used: Numeric (1 - 10) - Nausea Vomiting Nausea Vomiting: Not Present - Hydration Hydration: Ice chips, Has not voided - Discharge PostOp Status: Transfer Patient to floor
[2018-02-02] MEDS ORDERED: *HR* HYDROcodone/Acet 5/325 mg TABLET PO PRN (14:13)
[2018-02-02] MEDS ORDERED: Naloxone 0.4 MG/ML INJ IVP PRN (14:13)
[2018-02-02] MEDS ORDERED: Acetaminophen 325 MG TABLET PO PRN (14:13)
[2018-02-02] MEDS ORDERED: OXYCODONE Oral CONC 10 MG/0.5 ML ORAL.SYG SL PRN ×2 (14:13)
[2018-02-02] MEDS ORDERED: Fluticasone Propionate Nasal 50 MCG/SPRAY BOTTLE NS PRN (14:13)
[2018-02-02] MEDS ORDERED: Ondansetron 4 MG/2 ML VIAL IVP PRN (14:13)
[2018-02-02] MEDS ORDERED: 0.9 % Sodium Chloride 1,000 ML IVC SCH (14:13)
[2018-02-02] MEDS: *HR* OxyCODONE Immed Rel 5 MG TABLET PO PRN (15:18)
[2018-02-02] MEDS: *HR* Metoprolol 5 MG/5 ML VIAL IVP SCH (16:19)
[2018-02-03] MEDS: *HR* Metoprolol 5 MG/5 ML VIAL IVP SCH ×2 (00:12→06:07)
[2018-02-03] MEDS: *HR* OxyCODONE Immed Rel 5 MG TABLET PO PRN ×2 (00:19→06:07)
[2018-02-03] MEDS ORDERED: *HR* Heparin 5,000 UNIT/ML VIAL SQ SCH ×2 (06:00)
--- NOTE | 2018-02-03 08:03 | Discharge Summary ---
Orders not resulted at time of discharge: Pending orders 02/02/18 12:33 Surgical Pathology [PTH] Routine Date of Encounter: 02/03/18 Time of Encounter: 08:10 - Discharge Diagnosis (1) Carotid stenosis, bilateral Priority: Primary Status: Chronic Comments: The patient is postoperative day 1 after left carotid endarterectomy. His no new neurologic deficits. His incision is healing well. He has no hematoma. He reports adequate pain control. He will be discharged today. (2) Tobacco abuse Priority: Secondary Status: Chronic (3) Hypertension Priority: Secondary Status: Chronic Qualifiers: Hypertension type: essential hypertension Qualified Code(s): I10 - Essential (primary) hypertension (4) HLD (hyperlipidemia) Priority: Secondary Status: Chronic Qualifiers: Hyperlipidemia type: mixed hyperlipidemia Qualified Code(s): E78.2 - Mixed hyperlipidemia - Hospital Course Hospital course: Mr. Collier is a 67 year old male with history of hypertension hyperlipidemia and tobacco abuse. The patient was found have a 60-79% left internal carotid artery stenosis. The patient manifested with a left hemispheric transient ischemic attacks with right-handed facial paresthesias. He was admitted on 02/02/2018 and he underwent a left carotid endarterectomy. On postoperative day #1 he tolerated the procedure well was healing. He had no new neurologic deficits. He was discharged in stable condition without complication on postoperative day #1. Time spent discussing smoking cessation with patient: 3 to 10 minutes - Time Spent with Patient Total time spent providing and/or coordinating discharge services: - Discharge Medications Home Medications: Fluticasone Propionate Nasal [Flonase] 2 puff NS HS PRN 12/13/17 [History] HYDROcodone/Acet 7.5/325 mg [[place] 7.5-325 mg] 1 tab PO Q4H PRN 12/13/17 [History] Aspirin Enteric Coated [Aspirin EC] 81 mg PO DAILY 30 Days #30 tablet. 12/14/17 [Rx] Atorvastatin [Lipitor] 40 mg PO HS 30 Days #30 tablet 12/14/17 [Rx] amLODIPine [Norvasc] 5 mg PO DAILY 30 Days #30 tablet 12/14/17 [Rx] Clopidogrel [Plavix] 75 mg PO DAILY #30 tablet 01/03/18 [Rx] Ascorbic Acid [Vitamin C] 500 mg PO DAILY 02/02/18 [History] Pyridoxine HCl [Vitamin B-6] 100 mg PO DAILY 02/02/18 [History] Vitamin E Acid Succinate [Vitamin E] 400 units PO DAILY 02/02/18 [History] Allergies/Adverse Reactions: Allergy/AdvReac Type Severity Reaction Status Date / Time latex Allergy Rash Verified 01/01/18 21:54 Sulfa (Sulfonamide Allergy Hives Verified 01/01/18 21:54 Antibiotics) Date of admission: 02/02/18 14:10 Primary care physician: Milton Jean MD Procedure(s) Performed: Left carotid endarterectomy with Hemashield patch angioplasty Discharging clinician: Jagjit Holloway Anticipated date of discharge: 02/03/18 Exam Vital Signs, Last 4 Hours Temp Pulse Resp BP Pulse Ox 02/03/18 04:20 98.3 F 86 16 105/64 91 General: Present: Conversant, No Apparent Distress HEENT: Present: Pupils equal Neck: Present: Other (His incision clean, dry and intact without erythema or drainage, no hematoma, no pulsatile mass, no fluctuance.) Cardiac: Present: Reg Rate and Rhythm Lungs: Present: Normal Breath Sounds Neuro: Present: Alert and responsive, No focal deficits noted, Motor nerves grossly intact, Sensory nerves grossly intact Abdomen: Present: Soft Vascular: Present: Normal capillary refill. Absent: Cyanosis, Edema - Patient Status Disposition: Home, Self-Care Condition: Good Functional capacity at discharge: independent ambulation Overall status at discharge: patient is back to baseline - Discharge Instructions Follow Up With: Jagjit Holloway MD [Partnered Physician] - 03/08/18 1:20 pm Milton Jean MD [Primary Care Provider] - 02/09/18 10:30 am Additional Instructions: May remove bandage and shower on 02/04/2018. Wash wound gently and pat to dry. No driving or strenuous activity for 7 days. Call [phone] with questions or concerns. - Diet and Activity Activity: increase activity as tolerated Diet: advance to your usual diet
[2018-02-03] MEDS ORDERED: Ascorbic Acid 500 MG TABLET PO SCH (09:00)
[2018-02-03] MEDS ORDERED: Aspirin Enteric Coated 81 MG Tablet PO SCH (09:00)
[2018-02-03] MEDS ORDERED: Pyridoxine (B-6) 50 MG TABLET PO SCH (09:00)
[2018-02-03] MEDS ORDERED: amLODIPine 5 MG TABLET PO SCH (09:00)
[2018-02-03 11:09] VITALS: BP 117/63
== END 2018-02-03 10:58 | disposition home or self-care (01) | DRG 39 ==
LOC: SAMDAY 07:34 → 2NNU 14:10
PROVIDERS: ADMIT Surgery; ATTEND Surgery